=== PATIENT | male | born 1965 | race Caucasian/White ===

== ENCOUNTER 2020-04-16 10:10 | Day surgery (SDC) | payer OTHER, SELFPAY ==
[2020-04-12 12:24] VITALS: BMI 31.1
--- NOTE | 2020-04-14 15:10 | HO.ANESPROP2 ---
Documented by User: Bettye Andrea 04/15/20 13:03 HPI - Anesthesia Eval Consult details Narrative: 55yo M for Upper Endoscopy [facility] Past Medical History Medical History GERD (gastroesophageal reflux disease) Surgical History Surgical History History of shoulder surgery Social History Social History Are you a primary childcare worker to a significant other at home: No Do you presently have visiting nurse or other home services: No Smoking Status: Unknown if ever smoked Use of substances other than those prescribed or required for medical reasons: No Have you been hit, kicked, punched, or otherwise hurt by someone within the past year? If so, by whom?: No Advance Directives: No Advance Directives on File: No Recently lost weight without trying: No Meds Allergies Allergy/AdvReac Type Severity Reaction Status Date / Time No Known Allergies Allergy Verified 04/15/20 13:03 Home Medications Medication Instructions Recorded Confirmed Type albuterol sulfate 1 puff PO Q4H PRN 04/12/20 04/12/20 History ibuprofen 800 mg PO Q8H PRN 04/12/20 04/12/20 History multivitamin 1 cap PO DAILY 04/12/20 04/12/20 History omeprazole 1 cap PO DAILY 04/12/20 04/12/20 History Exam Exam Date and Time: April 14, 2020 1510 Height,Weight and Vital Signs: Height 5 ft 8 in Weight 92.986 kg Assessment and Plan Assessment Anesthesia Assessment: Chart Reviewed Documented by User: Emilie Narayan 04/16/20 10:22 [facility] Past Medical History Medical History GERD (gastroesophageal reflux disease) Surgical History Surgical History History of shoulder surgery Social History Social History Are you a primary childcare worker to a significant other at home: No Do you presently have visiting nurse or other home services: No Smoking Status: Unknown if ever smoked Use of substances other than those prescribed or required for medical reasons: No Have you been hit, kicked, punched, or otherwise hurt by someone within the past year? If so, by whom?: No Advance Directives: No Advance Directives on File: No Recently lost weight without trying: No Meds Allergies Allergy/AdvReac Type Severity Reaction Status Date / Time No Known Allergies Allergy Verified 04/15/20 13:03 Home Medications Medication Instructions Recorded Confirmed Type albuterol sulfate 1 puff PO Q4H PRN 04/12/20 04/12/20 History ibuprofen 800 mg PO Q8H PRN 04/12/20 04/12/20 History multivitamin 1 cap PO DAILY 04/12/20 04/12/20 History omeprazole 1 cap PO DAILY 04/12/20 04/12/20 History Exam Airway Mallampati Class: I TM Dist: >3cm Neck ROM: Full Loose/Missing/Broken Teeth: No Heart: RRR Lungs: CTA Assessment and Plan Assessment Anesthesia Assessment: Anesthesia Plan Discussed and Chart Reviewed Final Anesthetic Review NPO: Yes ASA Class: I Final Preanesthetic Review: Meds/Allgs Chart Reviewed, Consent Obtained/Reviewed and Anes Risks/Benef Reviewed Patient Risk: Low Procedure Risk: Intermediate Anesthetic Plan Anesthetic Plan: MAC: Disposition: Standard PACU
[2020-04-16 10:16] VITALS: BP 127/91; PULSE 61; RESP 18; TEMP 36.3; O2SAT 98
--- NOTE | 2020-04-16 10:24 | MHC.SHP ---
Pre-Procedural Eval Section A The patient is an INPATIENT: No Changes since office visit: No Cold of Flu in the past 2 weeks, No New Medical Problems, No Changes in Medication and No Patient answered all questions The History & Physical has been completed within 30 days and I have reviewed it.: Yes Section B Chief Complaint: Gerd Allergies: Allergies Allergy/AdvReac Type Severity Reaction Status Date / Time No Known Allergies Allergy Verified 04/15/20 13:03 Plan Patient has been examined and remains a candidate for the planned procedure
[2020-04-16] MEDS: Lactated Ringers 1,000 ML 100 ML IVCONT (10:30)
--- NOTE | 2020-04-16 10:47 | PM.OP ---
Brief Operative Note Date of Service: 04/16/20 Pre-op diagnosis: gerd Post-op diagnosis: same (gastric polyps) Procedure: egd Surgeon: Eliseo Vieira Anesthesia: MAC Estimated blood loss (mL): 5 Pathology: other (bxs antrum egj gastric polyps) Condition: stable Disposition: PACU
[2020-04-16 10:55] VITALS: BP 127/86; PULSE 73; RESP 16; TEMP 36.3; O2SAT 96
[2020-04-16 11:10] VITALS: BP 136/86; PULSE 74; RESP 16; TEMP 36.3; O2SAT 96
--- NOTE | 2020-04-16 11:25 | OP_ITS ---
SURGEON: Eliseo Vieira MD INDICATIONS: Gastroesophageal reflux disease. PREOPERATIVE DIAGNOSIS: POSTOPERATIVE DIAGNOSIS: PROCEDURE PERFORMED: Upper endoscopy with biopsy. ESTIMATED BLOOD LOSS: COMPLICATIONS: ANESTHESIA: ASSISTANTS: SPECIMENS: MEDICATIONS: Monitored anesthesia care. DESCRIPTION OF PROCEDURE: History and physical performed. The risks and benefits of the procedure were explained to the patient. Informed consent was obtained. The patient was placed in the left lateral decubitus position. The Olympus video gastroscope was introduced into the esophagus, stomach, and duodenum. Examination was performed and the scope was removed. He tolerated the procedure well and was taken to recovery area in stable condition. FINDINGS: Esophagus: The esophagus was remarkable for a small area of less than 2 cm of possible Lennon's esophagus. There was a small hiatal hernia. Biopsies were obtained from the EG junction. Stomach: The stomach showed no evidence of masses or ulcers. There were multiple benign-appearing gastric polyps in the body and fundus. Two of these were biopsied, all were less than 10 mm. Antral biopsies were obtained to rule out H pylori. Duodenum: The bulb and second portion were normal. IMPRESSION: 1. Gastroesophageal reflux disease. 2. Gastric polyps. RECOMMENDATION: Follow up the biopsy results. MD MARIO Swenson/KYLAH / [id number]
--- NOTE | 2020-04-16 13:07 | HO.POSTANES ---
Post Anesthesia Evaluation Post Anesthesia Evaluation Vital Signs: Vital Signs Temp Pulse Resp BP Pulse Ox 04/16/20 11:10 97.3 F 74 16 136/86 96 04/16/20 10:55 97.3 F 73 16 127/86 96 04/16/20 10:16 97.4 F 61 18 127/91 H 98 Anesthesia: Monitored Mental Status: Awake Pain Control: Satisfactory Nausea/Vomiting: None Hydration: Adequate Anesthesia-Related Issues: No Anes. Related Issues
== END 2020-04-16 12:47 | disposition home or self-care (01) ==
PROVIDERS: PCP Internal Medicine; Visit Provider Internal Medicine Gastroenterology
PROC: 0DJ08ZZ Inspection of Upper Intestinal Tract, Via Natural or Artificial Opening Endoscopic (ICD-10-PCS; CPT 43235; principal; 2020-04-16 11:10)
DX: K21.00 Gastro-esophageal reflux disease with esophagitis, without bleeding (principal); K31.7 Polyp of stomach and duodenum; K22.70 Barrett's esophagus without dysplasia
CPT/HCPCS: 43239; 88305; 88342

== ENCOUNTER 2020-07-06 08:42 | Outpatient (REF) | payer OTHER, SELFPAY ==
[2020-07-06 09:35] LABS: MANUAL DIFF FLAG NO
[2020-07-06 09:37] LABS: Basophils Absolute Auto 0.1 X10*3/uL (0.0-0.2); Basophils Percent Auto 0.7 % (0-2); Eosinophils Absolute Auto 0.3 X10*3/uL (0.0-0.4); Eosinophils Percent Auto 3.7 % (0-4); Hematocrit 41.6 % (42-52); Hemoglobin 14.2 g/dl (14.0-18.0); Imm Gran Abs Auto 0.08 X10*3/uL (0.00-0.03); Imm Gran Pct Auto 1.2 % (0.0-0.4); Lymphocytes Absolute Auto 1.7 X10*3/uL (1.2-4.9); Lymphocytes Percent Auto 25.5 % (20-40); Mean Corpuscular HGB Conc 34.1 g/dl (31.0-36.0); Mean Corpuscular Hemoglobin 30.4 pg (27.0-33.0); Mean Corpuscular Volume 89.1 fL (80-98); Mean Platelet Volume 10.4 fL (9.4-12.4); Monocytes Absolute Auto 0.7 X10*3/uL (0.1-1.2); Neutrophils Absolute Auto 3.9 X10*3/uL (2.0-8.3); Neutrophils Percent Auto 57.9 % (45-73); Platelet Count 276 X10*3/uL (160-400); Red Blood Count 4.67 X10*6/uL (4.60-5.80); Red Cell Distribution Width 12.7 % (11.0-16.0); White Blood Count 6.8 X10*3/uL (4.8-10.8)
[2020-07-06 09:57] LABS: Glucose Urine UA NEG (NEG); Leukocyte Esterase Urine NEG (NEG); Nitrite Urine NEG (NEG); Specific Gravity - Urine 1.025 (1.005-1.025); Urine Blood TRACE (NEG); Urine Ketones NEG (NEG); Urine Protein NEG (NEG-TRACE)
[2020-07-06 09:58] LABS: Alanine Aminotransferase 50 U/L (0-40); Albumin Level 3.9 g/dL (3.5-5.0); Alkaline Phosphatase 79 U/L (39-117); Anion Gap 14 (12-20); Aspartate Amino Transferase 26 U/L (5-37); Bilirubin Total 0.5 mg/dL (0.0-1.0); Blood Urea Nitrogen 15 mg/dL (9-16); Calcium 8.7 mg/dL (8.4-10.2); Carbon Dioxide 24 mmol/L (22-29); Chloride 106 mmol/L (96-108); Cholesterol 221 mg/dL; Estimated Glomerular Filt Rate > 60; Glucose Random 102 mg/dL (60-115); HDL Cholesterol 44 mg/dL; LDL Cholesterol Calculated 150 mg/dl; Potassium 4.2 mmol/L (3.3-5.1); Sodium 140 mmol/L (135-145); Total Protein 6.8 g/dL (6.5-8.0); Triglycerides 136 mg/dL
[2020-07-06 10:03] LABS: Appearance Urine CLEAR; Color Urine YELLOW
[2020-07-06 10:17] LABS: WBC Urine 0-2 /HPF (0-4)
[2020-07-06 10:18] LABS: Prostate Specific Antigen 0.86 ng/mL (<0.05-4.0)
[2020-07-06 10:19] LABS: Mucus Urine 1+ /LPF
== END 2020-07-06 08:43 | disposition home or self-care (01) ==
LOC: HO.LAB 08:42
PROVIDERS: PCP Internal Medicine; Visit Provider Internal Medicine
DX: Z00.00 Encounter for general adult medical examination without abnormal findings (principal); E78.00 Pure hypercholesterolemia, unspecified; Z12.5 Encounter for screening for malignant neoplasm of prostate
CPT/HCPCS: 36415; 80053; 80061; 81001; 81003; 84153; 85025

== ENCOUNTER 2021-07-19 10:37 | Outpatient (REF) | payer OTHER, SELFPAY ==
[2021-07-19 10:39] LABS: MANUAL DIFF FLAG NO
[2021-07-19 11:28] LABS: Appearance Urine CLEAR; Color Urine YELLOW; Glucose Urine UA NEG (NEG); Leukocyte Esterase Urine NEG (NEG); Nitrite Urine NEG (NEG); Urine Blood 1+ (NEG); Urine Ketones NEG (NEG); Urine Protein NEG (NEG-TRACE)
[2021-07-19 11:29] LABS: Basophils Absolute Auto 0.1 X10*3/uL (0.0-0.2); Eosinophils Absolute Auto 0.4 X10*3/uL (0.0-0.4); Eosinophils Percent Auto 5.6 % (0-4); Hematocrit 43.3 % (42.0-52.0); Hemoglobin 14.4 g/dl (14.0-18.0); Imm Gran Abs Auto 0.09 X10*3/uL (0.00-0.03); Imm Gran Pct Auto 1.3 % (0.0-0.4); Lymphocytes Percent Auto 27.7 % (20-40); Mean Corpuscular HGB Conc 33.3 g/dl (31.0-36.0); Mean Corpuscular Hemoglobin 30.1 pg (27.0-33.0); Mean Corpuscular Volume 90.4 fL (80.0-98.0); Mean Platelet Volume 10.5 fL (9.4-12.4); Monocytes Absolute Auto 0.8 X10*3/uL (0.1-1.2); Neutrophils Absolute Auto 3.8 x10*3/uL (2.0-8.3); Neutrophils Percent Auto 53.4 % (45-73); Platelet Count 260 X10*3/uL (160-400); Red Blood Count 4.79 X10*6/uL (4.60-5.80); Red Cell Distribution Width 12.6 % (11.0-16.0); White Blood Count 7.2 X10*3/uL (4.8-10.8)
[2021-07-19 11:51] LABS: Alanine Aminotransferase 40 U/L (0-40); Albumin Level 3.8 g/dL (3.5-5.0); Alkaline Phosphatase 75 U/L (39-117); Anion Gap 10 (12-20); Aspartate Amino Transferase 22 U/L (5-37); Bilirubin Total 0.4 mg/dL (0.0-1.0); Blood Urea Nitrogen 14 mg/dL (9-16); Carbon Dioxide 28 mmol/L (22-29); Chloride 106 mmol/L (96-108); Cholesterol 214 mg/dL; Estimated Glomerular Filt Rate > 60; Glucose Fasting 107 mg/dL (60-99); HDL Cholesterol 42 mg/dL; LDL Cholesterol Calculated 144 mg/dl; Sodium 140 mmol/L (135-145); Total Protein 6.7 g/dL (6.5-8.0); Triglycerides 144 mg/dL
[2021-07-19 12:12] LABS: PSA,Total (Free>4and<10) 0.94 ng/mL (0.00-4.00)
== END 2021-07-19 10:38 | disposition home or self-care (01) ==
LOC: HO.LNP 10:37
PROVIDERS: PCP Internal Medicine; Visit Provider Internal Medicine
DX: Z00.00 Encounter for general adult medical examination without abnormal findings (principal); Z12.5 Encounter for screening for malignant neoplasm of prostate; E78.00 Pure hypercholesterolemia, unspecified
CPT/HCPCS: 80053; 80061; 81001; 81003; 84153; 85025

== ENCOUNTER 2022-07-25 11:44 | Outpatient (REF) | payer OTHER, SELFPAY ==
[2022-07-25 11:47] LABS: MANUAL DIFF FLAG NO
[2022-07-25 12:10] LABS: Basophils Absolute Auto 0.1 X10*3/uL (0.0-0.2); Eosinophils Absolute Auto 0.3 X10*3/uL (0.0-0.4); Eosinophils Percent Auto 3.3 % (0-4); Hematocrit 44.1 % (42.0-52.0); Hemoglobin 14.5 g/dl (14.0-18.0); Imm Gran Abs Auto 0.08 X10*3/uL (0.00-0.03); Lymphocytes Absolute Auto 2.4 X10*3/uL (1.2-4.9); Lymphocytes Percent Auto 29.1 % (20-40); Mean Corpuscular HGB Conc 32.9 g/dl (31.0-36.0); Mean Corpuscular Hemoglobin 29.8 pg (27.0-33.0); Mean Corpuscular Volume 90.7 fL (80.0-98.0); Monocytes Absolute Auto 0.9 X10*3/uL (0.1-1.2); Monocytes Percent Auto 11.2 % (2-11); Neutrophils Absolute Auto 4.4 x10*3/uL (2.0-8.3); Neutrophils Percent Auto 54.4 % (45-73); Platelet Count 283 X10*3/uL (160-400); Red Blood Count 4.86 X10*6/uL (4.60-5.80); White Blood Count 8.1 X10*3/uL (4.8-10.8)
[2022-07-25 12:13] LABS: Appearance Urine Clear; Color Urine Yellow; Glucose Urine UA Negative (Negative); Leukocyte Esterase Urine Negative (Negative); Nitrite Urine Negative (Negative); PH 5.5 (5.0-9.0); Urine Blood Negative (Negative); Urine Ketones Negative (Negative); Urine Protein Negative (Neg-Trace)
[2022-07-25 12:17] LABS: Bacteria Urine None Seen (None Seen); Hyaline Casts Urine 0-2 /LPF (0-2); Squamous Epithelial Cell Urine 0-2 /HPF (0-2); WBC Urine 0-5 /HPF (0-5)
[2022-07-25 12:29] LABS: Alanine Aminotransferase 54 U/L (0-40); Alkaline Phosphatase 75 U/L (39-117); Anion Gap 11 (12-20); Aspartate Amino Transferase 26 U/L (5-37); Bilirubin Total 0.6 mg/dL (0.0-1.0); Blood Urea Nitrogen 18 mg/dL (9-16); Calcium 9.1 mg/dL (8.4-10.2); Carbon Dioxide 26 mmol/L (22-29); Chloride 105 mmol/L (96-108); Cholesterol 216 mg/dL; Estimated Glomerular Filt Rate > 60; Glucose Fasting 104 mg/dL (60-99); HDL Cholesterol 40 mg/dL; LDL Cholesterol Calculated 150 mg/dl; Sodium 138 mmol/L (135-145); Total Protein 6.9 g/dL (6.5-8.0); Triglycerides 134 mg/dL
[2022-07-25 12:50] LABS: PSA,Total (Free>4and<10) 0.98 ng/mL (0.00-4.00)
== END 2022-07-25 11:45 | disposition home or self-care (01) ==
LOC: HO.LNP 11:44
PROVIDERS: Visit Provider Internal Medicine
DX: Z00.00 Encounter for general adult medical examination without abnormal findings (principal); E78.00 Pure hypercholesterolemia, unspecified; Z12.5 Encounter for screening for malignant neoplasm of prostate
CPT/HCPCS: 80053; 80061; 81001; 84153; 85025

== ENCOUNTER 2023-07-26 07:43 | Outpatient (REF) | payer OTHER, SELFPAY ==
[2023-07-26 10:30] LABS: MANUAL DIFF FLAG NO
[2023-07-26 10:33] LABS: Appearance Urine Clear; Color Urine Yellow; Glucose Urine UA Negative (Negative); Leukocyte Esterase Urine Negative (Negative); Nitrite Urine Negative (Negative); PH 5.5 (5.0-9.0); Specific Gravity - Urine 1.025 (1.005-1.025); UMIC TRIGGER UACC YES; Urine Blood Small (1+) (Negative); Urine Ketones Negative (Negative); Urine Protein Negative (Neg-Trace)
[2023-07-26 10:35] LABS: Basophils Absolute Auto 0.1 X10*3/uL (0.0-0.2); Basophils Percent Auto 0.7 % (0-2); Eosinophils Absolute Auto 0.2 X10*3/uL (0.0-0.4); Eosinophils Percent Auto 3.1 % (0-4); Hematocrit 43.4 % (42.0-52.0); Hemoglobin 14.7 g/dl (14.0-18.0); Imm Gran Abs Auto 0.07 X10*3/uL (0.00-0.03); Imm Gran Pct Auto 0.9 % (0.0-0.4); Lymphocytes Absolute Auto 2.1 X10*3/uL (1.2-4.9); Lymphocytes Percent Auto 28.5 % (20-40); Mean Corpuscular HGB Conc 33.9 g/dl (31.0-36.0); Mean Corpuscular Hemoglobin 30.4 pg (27.0-33.0); Mean Corpuscular Volume 89.9 fL (80.0-98.0); Monocytes Absolute Auto 0.8 X10*3/uL (0.1-1.2); Monocytes Percent Auto 11.1 % (2-11); Neutrophils Absolute Auto 4.1 x10*3/uL (2.0-8.3); Neutrophils Percent Auto 55.7 % (45-73); Platelet Count 270 X10*3/uL (160-400); Red Blood Count 4.83 X10*6/uL (4.60-5.80); Red Cell Distribution Width 12.8 % (11.0-16.0); White Blood Count 7.4 X10*3/uL (4.8-10.8)
[2023-07-26 10:49] LABS: Bacteria Urine None Seen (None Seen); Hyaline Casts Urine 0-2 /LPF (0-2); Squamous Epithelial Cell Urine 0-2 /HPF (0-2); WBC Urine 0-5 /HPF (0-5)
[2023-07-26 11:22] LABS: Alanine Aminotransferase 63 U/L (0-40); Alkaline Phosphatase 84 U/L (39-117); Anion Gap 11 (12-20); Aspartate Amino Transferase 31 U/L (5-37); Bilirubin Total 0.3 mg/dL (0.0-1.0); Blood Urea Nitrogen 17 mg/dL (9-16); Calcium 9.4 mg/dL (8.4-10.2); Carbon Dioxide 29 mmol/L (22-29); Chloride 105 mmol/L (96-108); Cholesterol 176 mg/dL (<200); Estimated Glomerular Filt Rate > 60; Glucose Fasting 101 mg/dL (60-99); HDL Cholesterol 36 mg/dL (>40); LDL Cholesterol Calculated 120 mg/dL (<100); Potassium 4.4 mmol/L (3.3-5.1); Prostate Specific Antigen Scr 1.05 ng/mL (<0.05-4.0); Sodium 141 mmol/L (135-145); Total Protein 7.5 g/dL (6.5-8.0); Triglycerides 100 mg/dL (<150)
== END 2023-07-26 07:44 | disposition home or self-care (01) ==
LOC: HO.10HDL 07:43
PROVIDERS: Visit Provider Internal Medicine
DX: Z00.00 Encounter for general adult medical examination without abnormal findings (principal); E78.00 Pure hypercholesterolemia, unspecified; Z12.5 Encounter for screening for malignant neoplasm of prostate
CPT/HCPCS: 36415; 80053; 80061; 81001; 84153; 85025

== ENCOUNTER 2024-01-04 11:16 | Outpatient (REF) | payer OTHER, SELFPAY ==
[2024-01-04 12:07] LABS: Alanine Aminotransferase 39 U/L (0-40); Alkaline Phosphatase 88 U/L (39-117); Aspartate Amino Transferase 24 U/L (5-37); Bilirubin Direct 0.2 mg/dL (0.0-0.5); Bilirubin Total 0.5 mg/dL (0.0-1.0); Cholesterol 133 mg/dL (<200); HDL Cholesterol 45 mg/dL (>40); LDL Cholesterol Calculated 72 mg/dL (<100); Total Protein 7.4 g/dL (6.5-8.0); Triglycerides 84 mg/dL (<150)
== END 2024-01-04 11:17 | disposition home or self-care (01) ==
LOC: HO.LNP 11:16
PROVIDERS: Visit Provider Internal Medicine
DX: I70.0 Atherosclerosis of aorta (principal)
CPT/HCPCS: 80061; 80076

== ENCOUNTER 2024-07-28 10:57 | Outpatient (REF) | payer OTHER, SELFPAY ==
[2024-07-28 11:02] LABS: MANUAL DIFF FLAG NO
[2024-07-28 11:07] LABS: Appearance Urine Clear; Basophils Percent Auto 0.5 % (0-2); Color Urine Yellow; Eosinophils Absolute Auto 0.2 X10*3/uL (0.0-0.4); Eosinophils Percent Auto 2.9 % (0-4); Glucose Urine UA Negative (Negative); Hemoglobin 14.1 g/dl (14.0-18.0); Imm Gran Abs Auto 0.09 X10*3/uL (0.00-0.03); Imm Gran Pct Auto 1.1 % (0.0-0.4); Leukocyte Esterase Urine Negative (Negative); Lymphocytes Absolute Auto 1.9 X10*3/uL (1.2-4.9); Lymphocytes Percent Auto 22.2 % (20-40); Mean Corpuscular HGB Conc 32.8 g/dl (31.0-36.0); Mean Corpuscular Hemoglobin 29.9 pg (27.0-33.0); Mean Corpuscular Volume 91.1 fL (80.0-98.0); Mean Platelet Volume 10.1 fL (9.4-12.4); Monocytes Absolute Auto 1.1 X10*3/uL (0.1-1.2); Monocytes Percent Auto 12.6 % (2-11); Neutrophils Absolute Auto 5.1 x10*3/uL (2.0-8.3); Neutrophils Percent Auto 60.7 % (45-73); Nitrite Urine Negative (Negative); Platelet Count 252 X10*3/uL (160-400); Red Blood Count 4.72 X10*6/uL (4.60-5.80); Red Cell Distribution Width 13.4 % (11.0-16.0); Specific Gravity - Urine 1.025 (1.005-1.025); UMIC TRIGGER UACC YES; Urine Blood Trace (Negative); Urine Ketones Negative (Negative); Urine Protein 30 (1+) mg/dL (Neg-Trace); White Blood Count 8.4 X10*3/uL (4.8-10.8)
[2024-07-28 11:09] LABS: Bacteria Urine None Seen (None Seen); Hyaline Casts Urine 0-2 /LPF (0-2); Squamous Epithelial Cell Urine 0-2 /HPF (0-2); WBC Urine 0-5 /HPF (0-5)
[2024-07-28 12:03] LABS: Alanine Aminotransferase 43 U/L (0-40); Albumin Level 3.9 g/dL (3.5-5.0); Alkaline Phosphatase 85 U/L (39-117); Anion Gap 11 (12-20); Aspartate Amino Transferase 30 U/L (5-37); Bilirubin Total 0.6 mg/dL (0.0-1.0); Blood Urea Nitrogen 16 mg/dL (9-16); Calcium 9.4 mg/dL (8.4-10.2); Carbon Dioxide 28 mmol/L (22-29); Chloride 107 mmol/L (96-108); Cholesterol 134 mg/dL (<200); Estimated Glomerular Filt Rate > 60; Glucose Fasting 104 mg/dL (60-99); HDL Cholesterol 42 mg/dL (>40); LDL Cholesterol Calculated 76 mg/dL (<100); Potassium 4.1 mmol/L (3.3-5.1); Sodium 142 mmol/L (135-145); Total Protein 7.3 g/dL (6.5-8.0); Triglycerides 81 mg/dL (<150)
--- OUTSIDE RECORDS SUMMARY | 2024-07-28 12:35 | XMS_ITS ---
Author Organization Jared English MD Address [address] [place], [place] [id number] Care Team Providers Care Insole Coverer Name Role Phone Tameka Jared Primary Care Provider [phone] Results Component Value Reference Range Notes Liver Panel Reviewed date:01/04/2024 12:30:49 PM Interpretation: Performing Lab:[facility], [address] [place] [id number] Notes/Report: Bilirubin Total 0.5 0.0-1.0 mg/dL Bilirubin Direct 0.2 0.0-0.5 mg/dL Aspartate Amino Transferase 24 5-37 U/L Alanine Aminotransferase 39 0-40 U/L Total Protein 7.4 6.5-8.0 g/dL Albumin Level 4.0 3.5-5.0 g/dL Alkaline Phosphatase 88 39-117 U/L Lipid Panel Reviewed date:01/04/2024 12:30:42 PM Interpretation: Performing Lab:[facility], [address] [place] [phone] Notes/Report: Triglycerides 84 <150 mg/dL Desirable Triglyceride: less than 150 mg/dL Borderline High Triglyceride 150-199 mg/dL High Triglyceride: 200-499 mg/dL Very High Triglyceride: greater than or equal to 5OO mg/dL Cholesterol 133 <200 mg/dL Desirable Cholesterol: less than 200 mg/dL Borderline High Cholesterol: 200-239 mg/dL High Cholesterol: greater than 239 mg/dL LDL Cholesterol Calculated 72 <100 mg/dL Desirable LDL: less than 100 mg/dL Near Optimal/Above Optimal LDL: 110-129 mg/dL Borderline High LDL: 130-159 mg/dL High LDL: 160-189 mg/dL Very High LDL: greater than or equal to 190 mg/dL HDL Cholesterol 45 >40 mg/dL Desirable HDL: greater than 40 mg/dL Note: This HDL assay may give artificially low results in patients with liver disease. REASON FOR VISIT fasting liver/ lipid panel Encounters Encounter Location Date Provider Diagnosis Jared English MD [address] [place] [address] [address] [place], [place] [id number] 01/04/2024 Jared English Hypercholesterolemia E78.00 and Atherosclerosis of abdominal aorta I70.0 Assessments Encounter Date Diagnosis (ICD Code) Assessment Notes Treatment Notes Treatment Clinical Notes Section Notes 01/04/2024 Hypercholesterolemia (ICD-10 - E78.00) 01/04/2024 Atherosclerosis of abdominal aorta (ICD-10 - I70.0) Plan Of Treatment Next Appt Details Provider Name:Jared Mckeon ier, 08/04/2024 09:30:00 AM, [address] [place] [address], Suite [facility], [place], [place], [id number], Progress Notes * Giovanni MANUEL SDOB:1965 (59 yo M)Acc No.[id number]:01/04/2024 Progress Note Patient:?Giovanni MANUEL S Provider:?Jared English MD :1965???Age:58 Y???Sex:Male Henrry e:01/04/2024 Address:[address] [place], [place] [id number] Subjective: * Chief Complaints: * ???1. Fasting liver/ lipid p [place]. * Medical History:? Objective: * Vitals:? Assessment: * Assessment: 1.?Hypercholesterolemia - E7 8.00 (Primary)???2.?Atherosclerosis of abdominal aorta - I70.0??? Plan: * Treatment: * Procedure Codes:?87079 VENIP UNCT, ROUTINE* * * The named appointment provid er may or may not be the originator of this progress note, and it is not deemed complete until electronically signed by the appointment provider. Sign off status: Pending * Provider:?Jared English MD Date:?0 01/04/2024 Generated for Julissa crenshaw/Geovanny/Kirtitting on:?07/28/2024 12:35 PM EST
--- OUTSIDE RECORDS SUMMARY | 2024-07-28 12:35 | XMS_ITS | Clinical Summary ---
Author Organization [facility] Address [address] [place] [address] Care Team Providers Care Key Carrier Name Role Phone Jared English MD Primary Care Provider [phone] Allergies No known active allergies Medications Medication Sig Dispensed Refills Start Date End Date Status omeprazole (PriLOSEC) 40 MG capsule Take 40 mg by mouth daily. 0 10/11/2021 Active Active Problems Problem Noted Date Diagnosed Date Trochanteric bursitis, right hip 11/15/2021 Social History Tobacco Use Types Packs/Day Years Used Date Smoking Tobacco: Never Assessed Sex and Gender Information Value Date Recorded Sex Assigned at Not on file Gender Identity Not on file Sexual Orientation Not on file Job Start Date Occupation Industry Not on file Not on file Not on file Last Filed Vital Signs Vital Sign Reading Time Taken Comments Blood Pressure - - Pulse - - Temperature - - Respiratory Rate - - Oxygen Saturation - - Inhaled Oxygen Concentration - - Weight 88.5 kg (195 lb) 11/15/2021 8:52 AM EDT Height 172.7 cm (5' 8 ) 11/15/2021 8:52 AM EDT Body Mass Index 29.65 11/15/2021 8:52 AM EDT Plan of Treatment Health Maintenance Due Date Last Done Comments Hepatitis C Screening 1965 COVID-19 Vaccine (#1) 1965 Depression Screening 1975 BMI Counseling 1981 Preventative Health Evaluation 1981 Colon Cancer Screening (Colonoscopy) 2008 Shingrix-Zoster Vaccine (1 of 2) 2013 DTap / Tdap / Td (2 - Td or Tdap) 07/25/2016 007 Influenza Vaccine (#1) 2024 RSV Adult > 60+ Yrs or Pregn ant (1 - 1-dose 75+ series) 2038 Hepatitis B Vaccines Aged Out No long er eligible based on patient's age to complete this topic Pneumococcal Vaccine Aged Out No long er eligible based on patient's age to complete this topic RSV Ped < 20 months Aged Out No longe r eligible based on patient's age to complete this topic Care Teams Key Carrier Relationship Specialty Start Date End Date Jared English MD [address] [place] [address] [address] [place] [phone] PCP - General Internal Medicine 11/14/21
--- OUTSIDE RECORDS SUMMARY | 2024-07-28 12:35 | XMS_ITS | Data Portability ---
Author Organization [place] - [facility], 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 Plan of Treatment Reminders Order Date Submit Date Provider Last Modified By Organization Details Last Modified Time Details Appointments None recorded. Lab None recorded. Referral None recorded. Procedures None recorded. Surgeries None recorded. Imaging XR, hand, 3 or more view 2023 024 [email or web address] [facility], [address], [address], [place], [address], 4 12:29:34 XR, ankle, 3 or more view - new pt 3 views left ankle wb rm 109 2023 024 [email or web address] [facility], [address], [address], [place], [address], 4 13:11:52 MRI, ankle, w/o contrast - left ankle pain eval stress fracture distal tibia STAT 2023 024 [email or web address] [facility] [place], [address], [address], [place], [address], 4 13:11:52 Medication Orders meloxicam 15 mg tablet 2023 024 [email or web address] [id number], [address] , [place], [address], 4 12:29:34 meloxicam 15 mg tablet 2023 024 [email or web address] [id number], [address], [place], [address], 12:17:45 Patient TargetsNo targets recorded. Patient InstructionsNo instructions recorded. Reason for Referral None Reported. Results Created Date Observation Date Name Description Value Unit Range Abnormal Flag Note LastModifiedBy Organization Detail LastModifiedTime 01/24/20 24 01/24/2024 XR, ankle , 3 or more view [email or web address] ?Encry pted=s hAaTro YD8dLq bEUv6g %2BXZw aYqtaq 0bqfl% 2Fg9IQ a4ajBk vP9nXo QUaueC m3YtLR FvZlgJ JJ8mAn HZtai3 0q9855 AC0Kra HmFWKT eUC8mr 84%3D INTERFACE [facility] [address], [place], [address], 01/24/2024 10:18:47 01/24/20 24 01/24/2024 XR, ankle , 3 or more view [email or web address] ?Encry pted=s hAaTro YD8dLq bEUv6g %2BXZw aYqtaq 0bqfl% 2Fg9IQ a4ajBk vP9nXo QUaueC m3YtLR FvZl JJ8mAn HZtai3 2b7090 AC0Kra HmFWKT eUC8mr 84%3D INTERFACE [facility] [address], [place], [address], 01/24/2024 10:18:49 02/02/20 24 01/13/2020 imagi ng/di agnos tic resul t No observ ation record ed. [email or web address] Not Available 01/04 06:35:35 02/14/20 24 02/13/2024 MRI, ankle , w/o contr ast No observ ation record ed. [email or web address] [facility] [place] [address], [place], [address], 02/28/2024 15:03:50 02/14/20 24 02/13/2024 XR, ankle , 3 or more view No observ ation record ed. ENRRIQUE [facility] [place] [address], [place], [address], 02/28/2024 15:03:51 04/11/20 24 04/11/2024 XR, hand, 3 or more view [email or web address] ?Encry pted=s hAaTro YD8dLq bEUv6g %2BXZw aYqtaq 0bqfl% 2Fg9IQ a4ajBk vP9nXo QUaueC m3YtLR FvZlgJ JJ8mAn HZtai3 1v5832 AC0Kqa HqAUaG hKiQtr MwF INTERFACE [facility] [address], [place], [address], 04/11/2024 10:19:26 04/11/20 24 04/11/2024 XR, hand, 3 or more view [email or web address] ?Encry pted=s hAaTro YD8dLq bEUv6g %2BXZw aYqtaq 0bqfl% 2Fg9IQ a4ajBk vP9nXo QUaueC m3YtLR FvZl J8Inkom HZtai3 8z2193 AC0Kqa HqAUaG hKiQtr MwF INTERFACE [facility] [address], [place], [address], 04/11/2024 10:19:28 Result Notes None recorded. Problems Name Problem SNOMED Code Status Onset Date Resolution Date Notes Provider Name and Address Organization Details Recorded Time Trochante jyoti bursitis of left hip 288849281739 103 Active 2017 Problem Code: M70.62; Problem Code Type: ICD-10; Status: 'A'; Not Available [facility] 11:27:35 Problem Notes None recorded. Procedures Surgical History Date Name Laterality Status Provider Name and Address Organization Details Recorded Time 5 Small Joint Kenalog Injection, L/R completed Tierney Worrell PA-C [address], [place], [address], [facility] 07/02/2024 11:45:49 5 Small Joint Kenalog Injection, Bilateral completed Tierney Worrell PA-C [address], [place], [address], [facility] 07/02/2024 11:45:44 Imaging Results Imaging Date Name Status LastModified by [facility] Details LastModified Time 01/24/2024 XR, ankle, 3 or more view completed INTERFACE [facility] [address], [place], [address], 01/24/2024 10:18:47 01/24/2024 XR, ankle, 3 or more view completed INTERFACE [facility] [address], [place], [address], 01/24/2024 10:18:49 01/13/2020 imaging/diagn ostic result completed [email or web address] Information not available 02/02/2024 06:35:35 02/13/2024 MRI, ankle, w/o contrast completed [email or web address] [facility] [place] [address] [facility], [place], [address], 02/28/2024 15:03:50 02/13/2024 XR, ankle, 3 or more view completed ENRRIQUE [facility] [place] [address], [place], [address], 02/28/2024 15:03:51 04/11/2024 XR, hand, 3 or more view completed INTERFACE [facility] [address], [place], [address], 04/11/2024 10:19:26 04/11/2024 XR, hand, 3 or more view completed [facility] [address], [place], [address], 04/11/2024 10:19:28 Procedure Notes None recorded. Medical Equipment None Reported. Allergies No known drug allergies Medications Name Sig Start Date Stop Date Status Note LastModified by Organization Details LastModified Time atorvastati n 40 mg tablet TAKE 1 TABLET BY MOUTH EVERY DAY FOR 90 DAYS active Not Available Not Available No t Available meloxicam 15 mg tablet TAKE 1 TABLET BY MOUTH EVERY DAY WITH A MEAL active Not Available Not Available No t Available omeprazole 40 mg capsule,del ayed release TAKE 1 CAPSULE BY MOUTH EVERY DAY active Not Available Not Available No t Available benzonatate 100 mg capsule TAKE 1 CAPSULE BY MOUTH 3 TIMES A DAY NEEDED FOR COUGH 03/25 completed Not Available Not Available Not Available pseudoephed rine-guaife nesin ER 80-700 mg tablet,exte nded release DO NOT DRIVE WHILE ON THIS MEDICATIO N 03/25 completed Statu s: 'Curr ent'; Not Available Not Available Not Available oxycodone HCl-oxycodo ne-ASA 1 Q 4-6HRS PRN PAINDO NOT DRIVE WHILE ON THIS MEDICATIO N 04/17 completed Statu s: 'Disc ontin ued'; Not Available Not Available Not Available Tremfya 100 mg/mL subcutaneou s auto-inject or 03/25 completed Not Available Not Available Not Available Vitals Date Recorded Body height Body mass index (BMI) Body weight Provider Name and Address Organization Details Last Updated DateTime 01/24/2024 172.72 cm 30.4 kg/m2 51210.47 g Danna Suresh [facility] 01/24/2024 10:11:54 Date Recorded Body height Body mass index (BMI) Body weight Provider Name and Address Organization Details Last Updated DateTime 02/28/2024 172.72 cm 30.4 kg/m2 10028.47 g Danna Suresh [facility] 02/28/2024 09:22:58 Date Recorded Body height Body mass index (BMI) Body weight Provider Name and Address Organization Details Last Updated DateTime 03/25/2024 172.72 cm 30.4 kg/m2 29957.47 g GABBI HERNANDEZ [facility] 03/25/2024 09:28:55 Date Recorded Body height Body mass index (BMI) Body weight Provider Name and Address Organization Details Last Updated DateTime 04/11/2024 172.72 cm 30.4 kg/m2 03556.47 g MIRELLA GARCIAS [facility] 04/11/2024 09:46:22 Date Recorded Body height Body mass index (BMI) Body weight Provider Name and Address Organization Details Last Updated DateTime 07/02/2024 172.72 cm 30.4 kg/m2 09246.47 g Danna Murraygo [facility] 07/02/2024 10:29:21 Social History None recorded. Functional Status None recorded. Mental Status None recorded. Family History Nothing Reported. Medical History No medical history recorded. Past Encounters Encounter ID Performer Location Encounter Start Date Encounter Closed Date Diagnosis/Indication Diagnosis SNOMED-CT Code Diagnosis ICD10 Code Diagnosis Note [id number] Tierney Worrell PA-C [facility] [address] [place] [address] 01/24/2024 10:00:33 02/18/2024 13:11:51 Ankle pain 309668119 M25.579 Stress fra cture of ankle 083047656 M84.372A [id number] Tierney Worrell PA-C [facility] [address] [place] [address] 02/28/2024 09:13:18 03/24/2024 11:53:18 Stress fracture of ankle 734079506 M84.372A [id number] Tierney Worrell PA-C [facility] [address] [place] [address] 03/25/2024 09:06:05 04/17/2024 11:01:23 Ankle pain 742523450 M25.111 [id number] Tierney Worrell PA-C [facility] [address] [place] [address] 04/11/2024 09:12:51 05/05/2024 09:34:52 Pain of bilateral hands 5451416557 6627076 M79.641 M79.727 [id number] [facility] [address] [place] [address] 07/02/2024 10:19:01 07/11/2024 13:16:52 Osteoarthritis of joint of bilateral hands 8608394006 77813 M19.041 M19.042 Health Concerns Section Related Observation LastModified by Organization Detai ls LastModified Time None Recorded Concern Status LastModified by Organization Details LastModified Time None Recorded Advance Directives Directive None Recorded Payers Encounter Date Sequence Insurance Name Policy Number Policy Riggins Covered Member ID Riggins Member ID Guarantor Name 01/24/2024 1 [facility] [id number] Danna Hoyt [id number] Giovanni Hoyt 02/28/2024 1 [facility] [id number] Danna Hoyt [id number] Giovanni [place] 03/25/2024 1 [facility] [id number] Danna Hoyt [id number] Giovanni S [place] 04/11/2024 1 [facility] [id number] Danna Hoyt [id number] Giovanni Hoyt 07/02/2024 1 [facility] Danna Hoyt [id number] Giovanni Hoyt Notes Date Note Type Note Provider Name and Address Organization Details Recorded Time 01/24/2024 text/html I am seeing this patient under the supervision of Dr. Dos Santos who was available but who did not see the patient.HPI: Patient is a 58-year-old male presenting to the office today for evaluation of left ankle pain. Reports the pain has been going on for the past month or so. Reports the pain is worse with weightbearing activity. Denies any particular falls or injuries. As mentioned he does spend a lot of time on his feet. Localizes his pain to the distal tibia region. He is here today for orthopedic consultation.Past family, medical, social history and review of systems has been reviewed, updated and is located in the patient's chart.Examination: The patient is well appearing, alert and oriented x3 and in no acute distress. Gait is a bit antalgic. On inspection of the left foot and ankle, there is edema about the ankle particularly the medial aspect. Otherwise no edema, erythema, ecchymosis or deformity. Skin is intact, no open wounds. Patient is exquisitly tender about the distal tibia. He is mildly tender about the posterior tibial tendon. Otherwise nontender about the foot and ankle. Patient is able to range the ankle in all planes. Neurovascularly intact distally. No gross instability. Calf is supple, nontender. Achilles tendon nontender, no palpable defect noted. Peripheral, vascular, lymphatic examination, skin, neurological, coordination, reflexes, sensation are within normal limits.X-rays ordered, obtained and reviewed independently today at [facility]: 3 x-rays of the left ankle reveal no acute fractures or dislocations. Minimal arthritic changes noted about the tibiotalar joint and hindfoot.Impression: left distal tibia stress reaction vs stress fracture, possible posterior tibial tendonitisPlan: I discussed my findings and the situation with the patient. We discussed potential treatment options at this time. I recommended an MRI to rule out possible stress fracture of the distal tibia given his sudden onset pain without any particular injury. I recommended weightbearing as tolerated in a boot, however patient would like a brace instead. He was given a script for a brace today. He was given a script for meloxicam per his request as well. Patient was advised not to take any other NSAIDs with meloxicam including ibuprofen/Advil/Aleve /Motrin, and was advised to take it with food. Patient will follow-up for MRI review. Patient's hands and agrees with this plan. All questions were answered.Speech recognition electrician control equipment software was used to create portions of this document. An attempt at proofreading has been made to minimize errors. Please call for corrections. Tierney Worrell PA-C [address] [facility] [address], [place], [address], [facility] 01/24/2024 12:08:43 02/28/2024 text/html I am seeing this patient under the supervision of Dr. Dos Santos who was available but who did not see the patient.HPI: Patient is a 58-year-old male presenting to the office today for recheck of left distal tibia stress reaction versus stress fracture and possible posterior tibial tendinitis. During last visit we obtained an MRI and patient was placed in a boot. He has been weightbearing as tolerated in the boot which he states helps his pain significantly. However his pain returns when he removes the boot. Denies interval trauma. Does mention he has been spending a lot of time on his feet walking and standing due to his kids and his job.Past family, medical, social history and review of systems has been reviewed, updated and is located in the patient's chart.Examination: The patient is well appearing, alert and oriented x3 and in no acute distress. Gait is a bit antalgic. On inspection of the left foot and ankle, there is edema about the ankle particularly the medial aspect. Otherwise no edema, erythema, ecchymosis or deformity. Skin is intact, no open wounds. Patient is exquisitly tender about the distal tibia. He is mildly tender about the posterior tibial tendon. Otherwise nontender about the foot and ankle. Patient is able to range the ankle in all planes. Neurovascularly intact distally. No gross instability. Calf is supple, nontender. Achilles tendon nontender, no palpable defect noted. Peripheral, vascular, lymphatic examination, skin, neurological, coordination, reflexes, sensation are within normal limits.X-rays ordered, obtained and reviewed independently today at [facility]: Not indicated or performed today.Previous films: 3 x-rays of the left ankle reveal no acute fractures or dislocations. Minimal arthritic changes noted about the tibiotalar joint and hindfoot.MRI left ankl independently reviewed by myself today with the patient: Posterior tibialis tendinopathy with low grade partial tearing and tenosynovitis. There is adjacent reactive edema at the posterior medial malleolus and there is also reactive edema at the medial navicular at the distal posterior tibial tendon insertion. Ankle soft tissue edema/swelling.Impres valerie: left distal tibia and navicular stress reaction and posterior tibial tendonitisPlan: I discussed my findings and the situation with the patient. We discussed potential treatment options at this time. I recommended he continue weightbearing as tolerated in the boot. Patient was also provided with arch support inserts to help offload the medial aspect of the ankle and posterior tibial tendon. Patient will follow-up in 4-6 weeks for evaluation, no x-rays needed at that time. Once the symptoms subside we can discuss the the need for ankle brace and/or physical therapy at that time. Patient agrees with this plan. All questions were answered.The patient is ambulatory, but has weakness and/or instability of their extremity which requires stabilization from this semi-rigid/rigid orthosis to improve their function. Verbal and written instructions for the use and application of this item were given. Patient was instructed that should the brace result in increased pain, decreased sensation, increased swelling or an overall worsening of their medical condition, to please contact our office immediately.Speech recognition electrician control equipment software was used to create portions of this document. An attempt at proofreading has been made to minimize errors. Please call for corrections. Tierney Worrell PA-C [address] [place] [address] [address], [place], [address], [facility] 02/28/2024 12:23:29 03/25/2024 text/html I am seeing this patient under the supervision of Dr. Dos Santos who was available but who did not see the patient.HPI: Patient is a 58-year-old male presenting to the office today for recheck of left distal tibia and navicular stress reaction and possible posterior tibial tendinitis. Reports his pain has significantly improved. He has weaned from the boot and transitioned to regular shoewear and returned to his regular activities. Reports the mild compression socks helped tremendously with his pain and swelling as well. Denies interval trauma.Past family, medical, social history and review of systems has been reviewed, updated and is located in the patient's chart.Examination: The patient is well appearing, alert and oriented x3 and in no acute distress. Gait is a bit antalgic. On inspection of the left foot and ankle, there is only minimal edema about the ankle particularly the medial aspect, significantly improved compared to last visit. Otherwise no edema, erythema, ecchymosis or deformity. Skin is intact, no open wounds. Patient is minimally tender about the distal tibia and navicular region. He is minimally tender about the posterior tibial tendon. Otherwise nontender about the foot and ankle. Patient is able to range the ankle in all planes. Neurovascularly intact distally. No gross instability. Calf is supple, nontender. Achilles tendon nontender, no palpable defect noted. Peripheral, vascular, lymphatic examination, skin, neurological, coordination, reflexes, sensation are within normal limits.X-rays ordered, obtained and reviewed independently today at [facility]: Not indicated or performed today.Previous films: 3 x-rays of the left ankle reveal no acute fractures or dislocations. Minimal arthritic changes noted about the tibiotalar joint and hindfoot.MRI left ankl independently reviewed by myself today with the patient: Posterior tibialis tendinopathy with low grade partial tearing and tenosynovitis. There is adjacent reactive edema at the posterior medial malleolus and there is also reactive edema at the medial navicular at the distal posterior tibial tendon insertion. Ankle soft tissue edema/swelling.Impres valerie: left distal tibia and navicular stress reaction and posterior tibial tendonitisPlan: I discussed my findings and the situation with the patient. We discussed potential treatment options at this time. Patient appears to be doing very well. He will continue gradually returning to regular shoewear and activities using pain as his guide. He will follow-up with us on an as needed basis. Patient agrees with this plan. All questions were answered.Speech recognition electrician control equipment software was used to create portions of this document. An attempt at proofreading has been made to minimize errors. Please call for corrections. Tierney Worrell PA-C [address] [place] [address] [address] [facility], [place], [address], [facility] 03/25/2024 11:08:10 04/11/2024 text/html I am seeing this patient under the supervision of Dr. Baez who was available but who did not see the patient. HPI: Patient is a 59-year-old male presenting to the office today for evaluation of bilateral hand pain. Reports that has been ongoing for a while. Reports pain and swelling and stiffness of the fingers, particularly the right middle finger and left index finger. Denies recent falls or injuries. Denies numbness or tingling. Denies clicking or locking of the fingers. He is here today for orthopedic consultation. Past family, medical, social history and review of systems has been reviewed, updated and is located in the patient's chart. Examination: The patient is well appearing, alert and oriented x3 and in no acute distress. Inspection of the bilateral hand and wrist reveals mild edema about the hand and digits particularly the left index finger MCP joint and right middle finger PIP joint. No atrophy, erythema, ecchymoses or deformity. Skin is intact, no open wounds. Full movement of the forearm, wrist and digits bilaterally with some stiffness of the digits particularly the left index finger and right middle finger. Intact median and ulnar innervated intrinsics. Intact extrinsic wrist and digit flexors and extensors. Intact sensation of median, ulnar and radial nerve distributions. Good capillary refill. Patient is tender about the left index finger MCP joint and right middle finger PIP joint. Otherwise nontender about the wrist, hand, and digits bilaterally. No triggering of any digit noted. Peripheral, vascular, lymphatic examination, skin, neurological, coordination, reflexes, sensation are within normal limits. X-rays ordered, obtained and reviewed independently today at [facility]: 4 view x-rays of bilateral hands reveal no acute fractures or dislocations. Right first CMC joint OA noted. Mild arthritic changes noted about the rest of the hand, wrist, and digits. Impression: Bilateral hand OA Plan: I discussed my findings and the situation with the patient. We discussed potential treatment options at this time. Patient had a previous prescription for meloxicam, he would like a refill for this. Refill provided, risks and benefits of the medication were discussed. Patient would like to hold off on cortisone injections for now. He was instructed on hand exercises to work on to avoid stiffness. He will follow-up with us on an as-needed basis. If symptoms persist or worsen or change or he would like a cortisone injection he will call the office. Patient understands and agrees with this plan. All questions were answered. Speech recognition electrician control equipment software was used to create portions of this document. An attempt at proofreading has been made to minimize errors. Please call for corrections. Tierney Worrell PA-C [address] [place] [address] [address] [facility], [place], [address], [facility] 04/11/2024 10:40:48 07/02/2024 text/html I am seeing this patient under the supervision of Dr. Baez who was available but who did not see the patient. Clinical update: Patient is here today for recheck. He is interested in cortisone injections today. He would like a cortisone injection for his right first CMC joint, right middle finger PIP joint, and left index finger PIP joint, as these joints are the ones bothering him at this time. Physical exam, imaging review, impression, and plan for today's visit updated below.HPI: Patient is a 59-year-old male presenting to the office today for evaluation of bilateral hand pain. Reports that has been ongoing for a while. Reports pain and swelling and stiffness of the fingers, particularly the right middle finger and left index finger. Denies recent falls or injuries. Denies numbness or tingling. Denies clicking or locking of the fingers. He is here today for orthopedic consultation.Past family, medical, social history and review of systems has been reviewed, updated and is located in the patient's chart.Examination: The patient is well appearing, alert and oriented x3 and in no acute distress. Inspection of the bilateral hand and wrist reveals mild edema about the hand and digits particularly the left index finger PIP joint and right middle finger PIP joint. No atrophy, erythema, ecchymoses or deformity. Skin is intact, no open wounds. Full movement of the forearm, wrist and digits bilaterally with some stiffness of the digits particularly the left index finger and right middle finger. Intact median and ulnar innervated intrinsics. Intact extrinsic wrist and digit flexors and extensors. Intact sensation of median, ulnar and radial nerve distributions. Good capillary refill. Patient is tender about the left index finger PIP joint and right middle finger PIP joint, as well as the right first CMC joint. Otherwise nontender about the wrist, hand, and digits bilaterally. No triggering of any digit noted. Peripheral, vascular, lymphatic examination, skin, neurological, coordination, reflexes, sensation are within normal limits.Previous films: 4 view x-rays of bilateral hands reveal no acute fractures or dislocations. Right first CMC joint OA noted. Mild arthritic changes noted about the rest of the hand, wrist, and digits.Impression: Bilateral hand OAPlan: I discussed my findings and the situation with the patient. We discussed potential treatment options at this time. Patient would like to proceed with cortisone injections for the right first CMC joint, right middle finger PIP joint, and left index finger PIP joint. We discussed the role of cortisone as well as its risks and benefits. Patient would like to proceed with an injection. Under sterile technique the patient's right first CMC joint was injected with 1 cc Kenalog and 1 cc lidocaine, and the right middle finger PIP joint and left index finger PIP joint were each injected with 0.5 cc Kenalog. Patient tolerated the procedure well. Post procedure protocol was discussed with the patient. He will follow-up on an as-needed basis. If symptoms persist or return or things worsen or change he will call the office. Patient understands and agrees with this plan. All questions were answered.Speech recognition electrician control equipment software was used to create portions of this document. An attempt at proofreading has been made to minimize errors. Please call for corrections. Tierney Worrell PA-C [address] [place] [address] [address], [place], [address], [facility] 07/02/2024 11:46:22
--- OUTSIDE RECORDS SUMMARY | 2024-07-28 12:36 | XMS_ITS ---
Author Organization Jared English MD Address [address] [place], [place] [id number] Care Team Providers Care Lpn Rn Name Role Phone Jared English Primary Care Provider Allergies No Known Allergies REASON FOR VISIT Discuss statin per MRI, NO Covid symptoms Medications Medication SIG (Take, Route, Frequency, Duration) Notes Start Date End Date Status Tremfya 100 MG/ML 1 mL Subcutaneous Active Omeprazole 40 MG TAKE 1 CAPSULE BY [facility] EVERY DAY Active Atorvastatin Calcium 40 MG 1 tablet Oral ly Once a day for 90 days 10/05/2023 Active Problems Problem Type SNOMED Code ICD Code Onset Dates Problem Status W/U Status Risk Notes Problem 072944497 Atherosclerosis of abdominal aorta (I70.0) Active confirmed Vital Signs Blood pressure systolic 102 mm Hg 10/05/19 24 Blood pressure diastolic 74 mm Hg 024 Height 67.5 in 10/05/2023 Weight 200 lbs 10/05/2023 BMI 30.86 kg/m2 10/05/2023 Encounters Encounter Location Date Provider Diagnosis Jared English MD [address] [place] [address] Drive [address] [place], [place] [phone] 10/05/2023 Jared English Atherosclerosis of abdominal aorta I70.0 Assessments Encounter Date Diagnosis (ICD Code) Assessment Notes Treatment Notes Treatment Clinical Notes Section Notes 10/05/2023 Atherosclerosis of abdominal aorta (ICD-10 - I70.0) patient verbalized understanding of the medication and directions for use Plan Of Treatment Medication Medication Name Sig Start Date Stop Date Notes Atorvastatin Calcium 40 MG 1 tablet Oral ly Once a day for 90 days 10/05/2023 Treatment Notes Assessment Notes Atherosclerosis of abdominal aorta patie nt verbalized understanding of the medication and directions for use Next Appt Details Provider Name:Jared Mckeon ier, 08/04/2024 09:30:00 AM, [address] [place] [address], [address], [place], [place], [id number], Progress Notes * Giovanni MANUEL SDOB:1965 (58 yo M)Acc No.[id number]:10/05/2023 Progress Notes Patient:?Giovanni Manuel S Provider:?Jared English MD :1965???Age:58 Y???Sex:Male Henrry e:10/05/2023 Address:[address] [place], [place] [phone] Subjective: * Chief Complaints: * ???Discuss statin per MRINO Covid symptoms * HPI: ???Symptom(s):? patient is a 58 yo male here for to discuss use a statins, had mri and had atherosclerosis of abdominal aorta. * ROS:?General/Constitutional:?Denies?Chills.?Denies?Fatigue.?Denies?Fever.?Denies?Headache.?ENT:?Patient denies?decreased sense of smell , any loss of taste , sore throat.?Denies?Sore throat.?Respiratory:?Denies?Cough.?Denies?Shortness of breath at rest.?Denies?Shortness of breath with exertion.?Gastrointestinal:?Denies?Diarrhea.?Denies?Nausea.?Musculoskeletal:?Patient denies?muscle aches.?Peripheral Vascular:?Patient denies?red and blue toes.? * Medical History:? * Surgical History:? * Hospitalization/Major Diagno stic Procedure:? * Medications:?TakingOmeprazol e 40 MG Capsule Delayed Release TAKE 1 CAPSULE BY MOUTH EVERY DAY Tremfya 100 MG/ML Solution Prefilled Syringe 1 mL Subcutaneous Medication List reviewed and reconciled with the patientTaking Omeprazole 40 MG Capsule Delayed Release TAKE 1 CAPSULE BY MOUTH EVERY DAY Taking Tremfya 100 MG/ML Solution Prefilled Syringe 1 mL Subcutaneous Medication List reviewed and reconciled with the patient * Allergies:?N.K.D.A.yes[Aller gies Verified] Objective: * Vitals:?Ht: 67.5, Wt:200, BM I:30.86, BP:102/74. * Examination: ???General Examination: ?GENERAL APPEARANCE:? alert, well hydrated, in no distress , male.?HEAD:? normocephalic.?SKIN:? good turgor.?HEART:? no murmurs, rubs, gallops, regular rate and rhythm.?LUNGS:? no wheezes, rales, rhonchi, good air movement, clear to auscultation bilaterally.? Assessment: * Assessment: 1.?Atherosclerosis of abdomi nal aorta - I70.0 (Primary)? Plan: * Treatment: * Procedure Codes:? * * Sign off status: Completed true * Provider:?Jared English MD Date:?0 10/05/2023 Generated for Julissa crenshaw/Geovanny/Kirtitting on:?07/28/2024 12:35 PM EST History and Physical Notes * HPI (History of Present Illness) Category Sub-Category Detail Notes Category Not es Symptom(s) patient is a 58 yo male here for to discuss use a statins, had mri and had atherosclerosis of abdominal aorta Examination Category Sub-Category Detail Notes Category Not es General Examination GENERAL APPEARANCE: alert, w ell hydrated, in no distress , male HEAD: normocephalic HEART: no murmurs, rubs, ga llops, regular rate and rhythm LUNGS: no wheezes, rales, r honchi, good air movement, clear to auscultation bilaterally SKIN: good turgor
--- OUTSIDE RECORDS SUMMARY | 2024-07-28 12:36 | XMS_ITS | Data Portability ---
Author Organization [facility], Main Office Address [address] [facility] [address] [place] [id number] Care Team Providers Care Copper Flotation Operator Name Role Phone DAR FLANAGAN Primary Care Provider Assessment No assessment recorded. Plan of Treatment Reminders Order Date Submit Date Provider Last Modified By Organization Details Last Modified Time Details Appointments None recorded. Lab None recorded. Referral dermatolo gist referral - for assitatan ce with psoriasis managemen t 2013 014 melissa Banks MD, [address] [place] [address], [address], 4 11:42:00 orthopedi c referral - for eval of left shoulder pain, ? rotator cuff compromis e 2013 014 melissa Tolliver MD, [address] [facility], [address], [address], 4 11:41:57 Procedures None recorded. Surgeries None recorded. Imaging None recorded. Medication Orders Prilosec OTC 20 mg tablet,de layed release 2013 014 laron [id number], [address] [place], [address], 4 14:27:47 clobetaso l 0.05 % shampoo 2013 014 INTERFACE [id number], [address] [place], [address], 4 09:56:55 Patient TargetsNo targets recorded. Patient InstructionsNo instructions recorded. Reason for Referral for eval of left shoulder pa in, ? rotator cuff compromise Referring Physician: Dar Flnaagan [facility], Encounter Date: 02/20/2014 for assitatance with psorias is management Referring Physician: Dar Flanagan [facility], Encounter Date: 02/20/2014 Problems Name Problem SNOMED Code Status Onset Date Resolution Date Notes Provider Name and Address Organization Details Recorded Time Patient status finding [id number] Completed 201301/12/2014 RECORDED 06/16/19 14 9:50AM BY DAE DORSEY ON/ADDEN DUM Not Available [facility] 4 05:20:36 Adult health examinat ion Completed 201301/12/2014 IMPRESSI ON: IMMUNIZA TION STATUS UTD SHORT OF FLU WHICH PT DECLINES . WILL SCREEN BASED ON RISK FACTORS. REGULAR DENTAL CARE AND SEATBELT USE ADVISED. DISTRACT ED DRIVING DISCUSSE D.; RECORDED 06/16/19 14 9:50AM BY DAE DORSEY ON/ADDEN DUM Not Available [facility] 4 05:20:36 Hypercho lesterol emia 89533357 Completed 201301/12/2014 RECORDED 06/16/19 14 9:50AM BY JOLEEN DORSEYATI ON/ADDEN DUM Not Available [facility] 4 05:20:36 Influenz a vaccine needed [id number] 06 Completed 201101/12/2014 RECORDED 04/30/20 12 11:05AM BY ERLIN SIMON [place], OFFICE VISIT Not Available [facility] 4 05:20:36 Patient status finding 230915111 Completed 201312/16/2013 RECORDED 06/16/19 14 9:50AM BY DAE DORSEY ON/ADDEN DUM Not Available [facility] 4 13:53:13 Asthma 269832449 Active 2013 IMPRESSI ON: MILD INTERMIT TANT AND CURRENTL Y WELL CONTROLL ED.; RECORDED 06/16/19 14 9:50AM BY KARLA TORIBIO I, OFFICE VISIT Not Available [facility] 4 05:20:36 Disorder of bursa of shoulder region 51238256 Active 2013 RECORDED 06/16/19 14 9:50AM BY KARLA TORIBIO I, OFFICE VISIT Not Available [facility] 4 05:20:36 Adult health examinat ion Completed 201312/16/2013 IMPRESSI ON: IMMUNIZA TION STATUS UTD SHORT OF FLU WHICH PT DECLINES . WILL SCREEN BASED ON RISK FACTORS. REGULAR DENTAL CARE AND SEATBELT USE ADVISED. DISTRACT ED DRIVING DISCUSSE D.; RECORDED 06/16/19 14 9:50AM BY KARLA TORIBIO I ANNOTATI ON/ADDEN DUM Not Available [facility] 4 13:53:13 Gastroes ophageal reflux disease 354818395 Active 2013 IMPRESSI ON: SYMPTOMS STABLE/W ELL CONTROLL ED. CONTINUE CURRENT REGIMEN. WILL GI TO CONSIDER F/U EGD WITH COLONOSC OPY NEXT YEAR.; RECORDED 06/16/19 14 9:50AM BY KARLA TORIBIO I, OFFICE VISIT Dar Flanagan MD [address] [facility] [address], [place], [address] , [facility] 4 14:27:46 Diaphrag matic hernia 19034619 Active 2013 RECORDED 06/16/19 14 9:50AM BY KARLA TORIBIO I, OFFICE VISIT Not Available [facility] 4 05:20:36 Pure hypercho lesterol emia 412346909 Active 2013 RECORDED 06/16/19 14 9:50AM BY KARLA TORIBIO I, OFFICE VISIT Not Available [facility] 4 05:20:36 Hypercho lesterol emia 96073068 Completed 201312/16/2013 RECORDED 06/16/19 14 9:50AM BY KARLA TORIBIO I ANNOTATI ON/ADDEN DUM Not Available [facility] 4 13:53:14 Lumbar sprain 159762143 Active 2013 IMPRESSI ON: SLOW TO RESOLVE, NO EVIDENCE FOR RADICULO JERARDO ON EXAM. WILL CONTINUE NSAID/MU SCLE RELAXANT AND HOME PT. REFER TO PMR IF PERSISTA NT/WORSE OVER NEXT COUPLE WEEKS.; RECORDED 06/16/19 14 9:50AM BY AKRLA TORIBIO I, OFFICE VISIT Not Available [facility] 4 05:20:36 Obesity 165902974 Active 2013 IMPRESSI ON: HEALTHIE R DIETARY CHOICES DISCUSSMark D. PHYSICAL ACTIVITY ADEQUATE . POTENTIA L PENITENTIARY HEALTH CONSEQUE NCES DISCUSSMark D.; RECORDED 06/16/19 14 9:50AM BY KARLA TORIBIO I, OFFICE VISIT Not Available [facility] 4 05:20:36 Psoriasi s 8344944 Active 2013 RECORDED 06/16/19 14 9:50AM BY KARLA TORIBIO I, OFFICE VISIT Dar Flanagan MD [address] [address], [place], [address] , [facility] 4 14:27:46 Influenz a vaccine needed 81149981214 06 Completed 201112/16/2013 RECORDED 04/30/20 12 11:05AM BY ERLIN SIMON [place], OFFICE VISIT Not Available [facility] 4 13:53:14 Right lower quadrant pain 339573854 Active 2013 IMPRESSI ON: PERISTEN T WORSENIN G ABDOMINA L PAIN X 4D, AFEBRILE , NON-ACUT E ABDOMEN; RECORDED 06/16/19 14 10:50AM BY TREASURE PARADA PA-C, OFFICE VISIT Not Available [facility] 4 05:20:36 Shoulder pain 14819351 Active Dar Flanagan MD [address] [address], [place], [address] , [facility] 4 14:27:46 Seborrhe ic keratosi s Active Dar Flanagan MD [address] [address], [place], [address] , [facility] 4 20:16:51 Rotator cuff tear arthropa thy 333661755 Active 2013 Unruly Flanagan MD [address] [address], [place], [address] , [facility] 4 10:52:29 Notes:06/16/2013: MYOCARDIA L INFARCTION - STATUS IS INACTIVE RECORDED 06/16/2013 9:50AM BY KARLA DODD, ANNOTATION/ADDENDUM ASTHMA - STATUS IS INACTIVE RECORDED 06/16/2013 9:50AM BY KARLA DODD, ANNOTATION/ADDENDUM ULCER DISEASE - STATUS IS INACTIVE RECORDED 06/16/2013 9:50AM BY KARLA DODD, KALEB/ADDENDUM Problem Notes None recorded. Procedures Surgical History Date Name Laterality Status Provider Name and Address Organization Details Recorded Time EGD completed Erlin Simon MA [facility] 02/20/2014 13:45:16 Imaging Results None recorded. Procedure Notes None recorded. Medical Equipment None Reported. Allergies No known drug allergies Medications Name Sig Start Date Stop Date Status Note LastModified by Organization Details LastModified Time Prescript ion - Prior Authoriza tion Request active Not Available Not Available Not Available cyclobenz aprine 10 mg tablet THREE TIMES DAILY, NEEDED 04/27 completed RECORDED 2 3:43PM BY DAR FLANAGAN MD, MEDICATIO N AUTO-INAC TIVATION; Not Available Not Available Not Available Prilosec 20 mg capsule,d elayed release DAILY 2011 active RECORDED 4 9:50AM BY KARLA DODD , OFFICE VISIT; Not Available Not Available Not Available ibuprofen 200 mg tablet DAILY active RECORDED 2 11:47AM BY DAR FLANAGAN MD, ANNOTATIO N/ADDENDU M; Not Available Not Available Not Available albuterol (refill) 90 mcg/actua tion aerosol inhaler EVERY 4 HRS NEEDED 2011 active RECORDED 4 9:50AM BY KARLA DODD , OFFICE VISIT; Not Available Not Available Not Available Prilosec OTC 20 mg tablet,de layed release Take 1 tablet every day by oral route for 30 days. 03/22 completed Not Available Not Available Not Available clobetaso l 0.05 % shampoo APPLY A THIN LAYER DAILY TO DRY SCALP.L EAVE FOR 15MIN,L ATHER THEN RINSE active Not Available Not Available No t Available naproxen TWO TIMES DAILY, NEEDED WITH FOOD 05/30 completed RECORDED 2 2:00PM BY DAR FLANAGAN MD, MEDICATIO N AUTO-INAC TIVATION; Not Available Not Available Not Available multivita min DAILY active RECORDED 4 9:50AM BY KARLA DODD , OFFICE VISIT; Not Available Not Available Not Available Symbicort 160 mcg-4.5 mcg/actua tion HFA aerosol inhaler TWO TIMES DAILY NEEDED 2011 active RECORDED 4 9:50AM BY KARLA DODD , OFFICE VISIT; Not Available Not Available Not Available Vitals Date Recorded Body height Body mass index (BMI) Body weight Oxygen saturation Oxygen saturation in Arterial blood by Pulse oximetry Heart rate Body temperature Systolic blood pressure Diastolic blood pressure Provider Name and Address Organization Details Last Updated DateTime 4 172.72 cm 28.4 kg/m2 26001.7 7319 g 98 % 98 % 60 /min 98.7 [degF] 109 mm[Hg] 72 mm[Hg] Erlin Simon MA [facility] 4 13:45:15 Social History None recorded. Functional Status None recorded. Mental Status None recorded. Family History Relationship Description Onset Age of this Age Resolved Age Notes LastModified by Organization Details LastModified Time Mother Malignant neoplastic disease stomac h abolcun Not available 02/20/2014 13:45:15 Father Heart disease abolcun Not available 2013 13:45:15 Father Hypertensive disorder abolcun Not available 2013 13:45:15 Medical History Condition Response Coronary Artery Disease N Gout N Other N Blood Diseases N Kidney Stones N Hyperthyroidism N Breast Cancer N mrsa exposure N Lung Disease N COPD N Depression N Hypothyroidism N Defects or Inherited Disease N Developmental or Behavioral Disorders N Breast Problem N Anesthesia Complications N Headaches/Migraines N Anxiety Disorder N Varicose Veins N Muscle, Joint, or Bone Problems N Obesity N Vision or Eye Problems N Arthritis N Head Injury/Concussion N Polyps N Infertility N Mental Disorder N Congenital Anomalies N Acid Reflux (GERD) Y Cancer N Stroke N ADHD N Endometriosis N High Cholesterol Y Liver Disease N Fibromyalgia N Headaches N Kidney Disease N Heart Problems N Ear or Hearing Problems N Hospitalizations N Thyroid Problems N GI Problems N Developmental Delay N Acne N Eating Disorder N Skin Problems N Anemia N Constipation N Bladder Problems N Mental Illness N Diabetes N Ovarian Cancer N Bedwetting N Blood Transfusions N Heart Problems/Murmur N Seizures/Epilepsy N Tuberculosis N AIDS/HIV N Congestive Heart Failure (CHF) N Eczema N Abuse/Domestic Violence N Diverticulitis N Asthma Y Allergies N Reflux/GERD N Hepatitis N Heart Disease N Pulmonary Embolism N Hypertension N Chicken Pox N Autism Spectrum Disorder (ASD) N Osteoporosis N Immunizations Vaccine Type Date Status Note Provider Nam e and Address Organization Details Recorded Time Tdap 07/25/2006 completed Not Available [facility] 12/16/2013 13:48:14 Past Encounters Encounter ID Performer Location Encounter Start Date Encounter Closed Date Diagnosis/Indication Diagnosis SNOMED-CT Code Diagnosis ICD10 Code Diagnosis Note [id number] [facility]Comm erce [address] [facility] [place] [address] 04/17/2012 00:00:00 [id number] [facility] [facility] [address] [place] [address] 04/30/2012 00:00:00 [id number] auto[facility] erce [address] [facility] [place] [address] 06/16/2013 00:00:00 [id number] Main Office [address] [facility] [address] [place] [address] 02/20/2014 13:20:33 02/20/2014 14:17:01 Psoriasis 6437343 Try a topical steropid while waiting to establish [facility] derm f/u. Shoulder pain 26915105 N ot urgent but mechanism of injury and duration of symptoms raises concern for rotator cuff pathology. Gastroesop hageal reflux disease 513231759 Well controlled without warning signs. Continue current regimen. Health Concerns Section Related Observation LastModified by Organization Detai ls LastModified Time None Recorded Concern Status LastModified by Organization Details LastModified Time None Recorded Advance Directives Directive None Recorded Payers Encounter Date Sequence Insurance Name Policy Number Policy Riggins Covered Member ID Riggins Member ID Guarantor Name 02/20/2014 1 [place] [facility] Giovanni Urbina Oviedo [id number]
--- OUTSIDE RECORDS SUMMARY | 2024-07-28 12:36 | XMS_ITS | Patient Health Record ---
Author Organization Jared English MD Address [address] [place], [place] [address] Care Team Providers Care Endoscopy Rn Name Role Phone Tameka Jared Primary Care Provider [phone] Allergies No Known Allergies Results Component Value Reference Range Notes Occult Blood, Stool, Guaiac Reviewed date:08/02/2023 10:39:00 AM Interpretation:Negative Performing Lab: Notes/Report: Negative Occult Blood, Stool, Guaiac Neg Hold Gold Reviewed date:01/04/2024 12:30:25 PM Interpretation: Performing Lab:[facility], [address] [place] [phone] Notes/Report: Hold Gold See Note Specimen held untested for 24 hours; Call to request Chemistry testing. Liver Panel Reviewed date:01/04/2024 12:30:49 PM Interpretation: Performing Lab:[facility], [address] [place] [phone] Notes/Report: Bilirubin Total 0.5 0.0-1.0 mg/dL Bilirubin Direct 0.2 0.0-0.5 mg/dL Aspartate Amino Transferase 24 5-37 U/L Alanine Aminotransferase 39 0-40 U/L Total Protein 7.4 6.5-8.0 g/dL Albumin Level 4.0 3.5-5.0 g/dL Alkaline Phosphatase 88 39-117 U/L Lipid Panel Reviewed date:01/04/2024 12:30:42 PM Interpretation: Performing Lab:[facility], [address] [place] [phone] Notes/Report: Triglycerides 84 <150 mg/dL Desirable Triglyceride: [...] low results in patients with liver disease. Comprehensive [place]. Panel Fa st (Not yet reviewed by provider) Interpretation: Performing Lab:[facility], [address] [place] [phone] Notes/Report: Sodium 142 135-145 mmol/L Potassium 4.1 3.3-5.1 mmol/L Chloride 107 96-108 mmol/L Carbon Dioxide 28 22-29 mmol/L Anion Gap 11 12-20 Blood Urea Nitrogen 16 9-16 mg/dL Creatinine 1.04 0.5-1.4 mg/dL Estimated Glomerular Filt Rate > 60 Chronic Kidney Disease: Estimated GFR < 60 mL/min/1.73m2 Severe Kidney Disease: Estimated GFR < 15 mL/min/1.73m2 Glucose Fasting 104 60-99 mg/dL A fasting glucose from 100-125 mg/dl is considered impaired (pre-diabetes). Calcium 9.4 8.4-10.2 mg/dL Bilirubin Total 0.6 0.0-1.0 mg/dL Aspartate Amino Transferase 30 5-37 U/L Alanine Aminotransferase 43 0-40 U/L Total Protein 7.3 6.5-8.0 g/dL Albumin Level 3.9 3.5-5.0 g/dL Alkaline Phosphatase 85 39-117 U/L UA ClnCatch+Micro w/rflx Cul t (Not yet reviewed by provider) Interpretation: Performing Lab:[facility], [address] [place] [phone] Notes/Report: [id number] Urine, Clean Catch Color Urine Yellow Appearance Urine Clear PH 6.0 5.0-9.0 Glucose Urine UA Negative Negative mg/dL Urine Blood Trace Negative Specific [place] - Urine 1.025 1.005-1.025 Urine Protein 30 (1+) Neg-Trace mg/dL Urine Ketones Negative Negative mg/dL Nitrite Urine Negative Negative Leukocyte Esterase Urine Negative Negative RBC Urine 6-10 0-2 /HPF WBC Urine 0-5 0-5 /HPF Squamous Epithelial Cell Urine 0-2 0-2 /HPF Bacteria Urine None Seen None Seen Hyaline Casts Urine 0-2 0-2 /LPF Complete Blood Count Auto Di ff Reviewed date:07/28/2024 12:33:45 PM Interpretation: Performing Lab:[facility], [address] [place] [phone] Notes/Report: White Blood Count 8.4 4.8-10.8 X10*3/uL Red Blood Count 4.72 4.60-5.80 X10*6/uL Hemoglobin 14.1 14.0-18.0 g/dl Hematocrit 43.0 42.0-52.0 % Mean Corpuscular Volume 91.1 80.0-98.0 fL Mean Corpuscular Hemoglobin 29.9 27.0-33.0 pg Mean Corpuscular HGB Conc 32.8 31.0-36.0 g/dl Red Cell Distribution Width 13.4 11.0-16.0 % Platelet Count 252 160-400 X10*3/uL Mean Platelet Volume 10.1 9.4-12.4 fL Neutrophils Percent Auto 60.7 45-73 % Imm Gran Pct Auto 1.1 0.0-0.4 % Lymphocytes Percent Auto 22.2 20-40 % Monocytes Percent Auto 12.6 2-11 % Eosinophils Percent Auto 2.9 0-4 % Basophils Percent Auto 0.5 0-2 % NRBC Pct Auto 0.0 0.0-0.2 /100WBC Neutrophils Absolute Auto 5.1 2.0-8.3 x10*3/u L Imm Gran Abs Auto 0.09 0.00-0.03 X10*3/uL Lymphocytes Absolute Auto 1.9 1.2-4.9 X10*3/u L Monocytes Absolute Auto 1.1 0.1-1.2 X10*3/uL Eosinophils Absolute Auto 0.2 0.0-0.4 X10*3/u L Basophils Absolute Auto 0.0 0.0-0.2 X10*3/uL NRBC Abs Auto 0.000 0.0-0.012 X10*3/uL Lipid Panel Reviewed date:07/28/2024 12:33:19 PM Interpretation: Performing Lab:[address] [phone] Notes/Report: Triglycerides 81 <150 mg/dL Desirable Triglyceride: less than 150 mg/dL Borderline High Triglyceride 150-199 mg/dL High Triglyceride: 200-499 mg/dL Very High Triglyceride: greater than or equal to 5OO mg/dL Cholesterol 134 <200 mg/dL Desirable Cholesterol: less than 200 mg/dL Borderline High Cholesterol: 200-239 mg/dL High Cholesterol: greater than 239 mg/dL LDL Cholesterol Calculated 76 <100 mg/dL Desirable LDL: less than 100 mg/dL Near Optimal/Above Optimal LDL: 110-129 mg/dL Borderline High LDL: 130-159 mg/dL High LDL: 160-189 mg/dL Very High LDL: greater than or equal to 190 mg/dL HDL Cholesterol 42 >40 mg/dL Desirable HDL: greater than 40 mg/dL Note: This HDL assay may give artificially low results in patients with liver disease. PSA,Total (Free>4and<10) Reviewed date:07/28/2024 12:33:26 PM Interpretation: Performing Lab:[address] [phone] Notes/Report: PSA,Total (Free>4and<10) 1.00 0.00-4.00 ng/mL A Free PSA was not performed: The percentage of Free PSA can be used to enhance the differentiation of prostate cancer from benign prostatic disease in subjects whose PSA levels are between 4.0 and 10.0 ng/mL. For subjects whose PSA levels are below 4.0 or above 10.0 ng/mL, the risk of prostate cancer is determined on the basis of the PSA alone. Therefore the % Free PSA is recommended only for those subjects whose PSA levels are between 4.0 and 10.0 ng/mL. PSA methodology: [place] i Chemiluminescent Microparticle Immunoassay (CMIA) Reason For Referral No Information Medications Medication SIG (Take, Route, Frequency, Duration) Notes Start Date End Date Status Omeprazole 40 MG TAKE 1 CAPSULE BY [facility] EVERY DAY for 90 Active Tremfya 100 MG/ML 1 mL Subcutaneous Active Atorvastatin Calcium 40 MG 1 tablet Oral ly Once a day for 90 days 10/05/2023 Active Immunizations Vaccine Route Administration Date Status Comme nts Fluarix Quadrivalent IM Intramuscular 03/02/2017 Administe red TDaP Unknown 12/02/2014 Administered Tetanus Unknown 12/02/2014 Administered Fluarix Quadrivalent IM Intramuscular 06/18/2018 Administe red Fluarix Quadrivalent Unknown 04/14/2019 Administered Fluarix Quadrivalent Unknown 04/05/2020 Administered cv s Fluarix Quadrivalent IM Intramuscular 07/19/2021 Administe red SARS-COV-2 Moderna Unknown 09/24/2020 Administered SARS-COV-2 Moderna Unknown 10/02/2020 Administered Fluarix Quadrivalent - 150 Unknown 04/12/2024 Administe red [facility] PPSV23 (Pnemovax) Unknown 07/04/2019 Refused Social History Tobacco Use: Social History Observation Description Date Details (start date - stop date) Never Smoker NA - NA Tobacco Use/Smoking Question Answer Notes Patient is a nonsmoker Additional Findings: Tobacco Non-User Cu rrent non-smoker, currently using no form of tobacco Alcohol Screen Question Answer Notes Did you have a drink contain ing alcohol in the past year? Yes How often did you have a dri nk containing alcohol in the past year? Monthly or less (1 point) How many drinks did you have on a typical day when you were drinking in the past year? 1 or 2 drinks (0 point) How often did you have 6 or more drinks on one occasion in the past year? Never (0 point) Points 1 Interpretation Negative Problems Problem Type SNOMED Code ICD Code Onset Dates Problem Status W/U Status Risk Notes Problem 533732351 Reflux esophagit is (K21.00) Active confirmed Problem 037183900 Atherosclerosis of abdominal aorta (I70.0) Active confirmed Problem Psoriasis (7334963) Psoriasis (L40.9) Active co nfirmed Problem Hypercholesterolemia (20004797) Hypercholesterolemia (E78.00) Active confirmed Problem 549380556 Mild intermitten t asthmatic bronchitis with acute exacerbation (J45.21) Active confirmed Vital Signs Blood pressure diastolic 74 mm Hg 10/05/2023 Height 67.5 in 10/05/2023 Blood pressure systolic 102 mm Hg 10/05/2023 Weight 200 lbs 10/05/2023 BMI 30.86 kg/m2 10/05/2023 Encounters Encounter Location Date Provider Diagnosis Jared English MD [address] [place] [id number] 01/04/2024 Jared English Hypercholesterolemia E78.00 and Atherosclerosis of abdominal aorta I70.0 Jared English MD [address] [place] [id number] 07/28/2024 Jared English Blood tests for rout ine general physical examination Z00.00 and Hypercholesterolemia E78.00 Jared English MD [address] [place] [address] Drive [address] [place] [id number] 08/02/2023 Jared English Microscopic hematuri a R31.29 ; Annual physical exam Z00.00 ; Psoriasis L40.9 ; Hypercholesterolemia E78.00 ; Reflux esophagitis K21.00 ; Colon cancer screening Z12.11 and Depression screening Z13.31 Jared English MD [address] [place] [id number] 10/05/2023 Jared English Atherosclerosis of abdominal aorta I70.0 Assessments Encounter Date Diagnosis (ICD Code) Assessment Notes Treatment Notes Treatment Clinical Notes Section Notes 01/04/2024 Hypercholesterolemia (ICD-10 - E78.00) 01/04/2024 Atherosclerosis of abdominal aorta (ICD-10 - I70.0) 07/28/20[address] tests [address] ine general physical examination (ICD-10 - Z00.00) 08/02/2023 Microscopic hematuri a (ICD-10 - R31.29) need results of mri and last visit at urology/ records request will be sent 08/02/2023 Annual physical exam (ICD-10 - Z00.00) labs reviewed and discussed with patient 10/05/2023 Atherosclerosis of abdominal aorta (ICD-10 - I70.0) patient verbalized understanding of the medication and directions for use 07/28/2024 Hypercholesterolemia (ICD-10 - E78.00) 08/02/2023 Psoriasis (ICD-10 - L40.9) has recovered on meds 08/02/2023 Hypercholesterolemia (ICD-10 - E78.00) doing well on no meds, will contoinue to monitor 08/02/2023 Reflux esophagitis (ICD-10 - K21.00) stable, will continue current regiment 08/02/2023 Colon cancer screeni ng (ICD-10 - Z12.11) guaiac negative 08/02/2023 Depression screening (ICD-10 - Z13.31) negative screen Plan Of Treatment Pending Test Test Name Order Date Electrocardiogram (EKG) 06/21/2018 Comprehensive [place]. Panel Fast 5 UA ClnCatch+Micro w/rflx Cult 07/28/2024 Next Appt Details Provider Name:Jared Mckeon ier, 08/04/2024 09:30:00 AM, [address] [facility], [address], [place], [place], [phone], Insurance Providers Payer Name Payer Address Payer Phone Subscriber Number Group Number Insured Name Patient Relationship to Insured Coverage Start Date Coverage End Date [facility] [address] [place], [place] [id number] Giovanni Manuel Self - patient is the insured Medical (General) History Medical History History ICD Code HDL 65, TRIGL 203, LDL 185 NON fasting Colonoscopy 07/21/2016 w/Dr. Carmelita pizarro 10 years hematuria evalu scope and mri mri is on 07/20/23 urology note tremfya is for psoriasis
--- OUTSIDE RECORDS SUMMARY | 2024-07-28 12:36 | XMS_ITS | Continuity of Care Document ---
Author Organization [facility], KEVIN Zelda 1st Floor Address [address] [place] [address] Care Team Providers Care Employment Advisor Name Role Phone SRIKANTH PATINO Primary Care Provider [phone] Assessment No assessment recorded. Plan of Treatment Reminders Order Date Submit Date Provider Last Modified By Organization Details Last Modified Time Details Appointments None record ed. Lab None record ed. Referral None record ed. Procedures None record ed. Surgeries None record ed. Imaging None record ed. Medication Orders None record ed. Patient TargetsNo targets recorded. Patient InstructionsNo instructions recorded. Reason for Referral None Reported. Problems Name Problem SNOMED Code Status Onset Date Resolution Date Notes Provider Name and Address Organization Details Recorded Time Trochante jyoti bursitis of left hip 235847041300 103 Active 2017 Problem Code: M70.62; Problem Code Type: ICD-10; Status: 'A'; Not Available Formerly [facility] 4 11:27:35 Problem Notes None recorded. Procedures Surgical History Date Name Laterality Status Provider Name and Address Organization Details Recorded Time 5 Small Joint Kenalog Injection, L/R completed Tierney Worrell PA-C [address], [place], [address], [facility] 07/02/2024 11:45:49 5 Small Joint Kenalog Injection, Bilateral completed Tierney Worrell PA-C [address], [place], [address], [facility] 07/02/2024 11:45:44 Imaging Results None recorded. Procedure Notes None [...] Updated DateTime 07/02/2024 172.72 cm 30.4 kg/m2 47758.47 g Danna Suresh [place] - [facility] 07/02/2024 10:29:21 Social History None recorded. Functional Status None recorded. Mental Status None recorded. Family History Nothing Reported. Medical History No medical history recorded. Past Encounters Encounter ID Performer Location Encounter Start Date Encounter Closed Date Diagnosis/Indication Diagnosis SNOMED-CT Code Diagnosis ICD10 Code Diagnosis Note [id number] TOMMIE Brooks [address] [facility] [place] [address] 07/02/2024 10:19:01 07/11/2024 13:16:52 Osteoarthritis of joint of bilateral hands 6084752027 61135 M19.041 M19.042 Health Concerns Section Related Observation LastModified by Organization Detai ls LastModified Time None Recorded Concern Status LastModified by Organization Details LastModified Time None Recorded Payers Encounter Date Sequence Insurance Name Policy Number Policy Riggins Covered Member ID Riggins Member ID Guarantor Name 07/02/2024 1 [facility] Danna Hoyt [id number] Giovanni Hoyt Notes Date Note Type Note Provider Name and Address Organization Details Recorded Time 07/02/2024 text/html I am seeing this patient [...] this plan. All questions were answered.Speech recognition chip applying machine tender software was used to create portions of this document. An attempt at proofreading has been made to minimize errors. Please call for corrections. Tierney Worrell PA-C [address] [place] [address] [address], [place], [address], [facility] 07/02/2024 11:46:22
--- OUTSIDE RECORDS SUMMARY | 2024-07-28 12:36 | XMS_ITS ---
Author Organization Jared English MD Address [address] [place], [place] [address] Care Team Providers Care Director Client Services Name Role Phone Tameka Jared Primary Care Provider Results Component Value Reference Range Notes Comprehensive [place]. Panel Fa st (Not yet reviewed by provider) Interpretation: Performing Lab:[facility], [address] [place] [phone] Notes/Report: Sodium 142 135-145 mmol/L Potassium 4.1 [...] (Not yet reviewed by provider) Interpretation: Performing Lab:[facility], [address] [place] [phone] Notes/Report: [id number] Urine, Clean Catch Color Urine Yellow Appearance Urine Clear PH 6.0 5.0-9.0 Glucose Urine UA Negative Negative mg/dL Urine Blood Trace Negative Specific [place] - Urine 1.025 1.005-1.025 Urine Protein 30 [...] ff Reviewed date:07/28/2024 12:33:45 PM Interpretation: Performing Lab:[facility], [address] [place] [phone] Notes/Report: White Blood Count 8.4 4.8-10.8 X10*3/uL [...] Panel Reviewed date:07/28/2024 12:33:19 PM Interpretation: Performing Lab:[address] [phone] Notes/Report: Triglycerides 81 <150 mg/dL Desirable Triglyceride: [...] (Free>4and<10) Reviewed date:07/28/2024 12:33:26 PM Interpretation: Performing Lab:[address] [phone] Notes/Report: PSA,Total (Free>4and<10) 1.00 0.00-4.00 ng/mL A [...] between 4.0 and 10.0 ng/mL. PSA methodology: Mora Alinity i Chemiluminescent Microparticle Immunoassay (CMIA) REASON FOR VISIT yearly fasting labs Encounters Encounter Location Date Provider Diagnosis Jared English MD [address] [place] [address] [place] [id number] 07/28/2024 Jared English Blood tests for rout ine general physical examination Z00.00 and Hypercholesterolemia E78.00 Assessments Encounter Date Diagnosis (ICD Code) Assessment Notes Treatment Notes Treatment Clinical Notes Section Notes 07/28/2024 Blood tests for rout ine general physical examination (ICD-10 - Z00.00) 07/28/2024 Hypercholesterolemia (ICD-10 - E78.00) Plan Of Treatment Pending Test Test Name Order Date Comprehensive [place]. Panel Fast UA ClnCatch+Micro w/rflx Cult 07/28/2024 Next Appt Details Provider Name:Jared Mckeon ier, 08/04/2024 09:30:00 AM, [address] [place] [address], Suite [facility], [place], [place], [phone], Progress Notes * Giovanni MANUEL SDOB:1965 (59 yo M)Acc No.[id number]:07/28/2024 Progress Note Patient:?Giovanni MANUEL S Provider:?Jared English MD :1965???Age:59 Y???Sex:Male Henrry e:07/28/2024 Address:[address] [place], [place] [id number] Subjective: * Chief Complaints: * ???1. Yearly fasting labs. * Medical History:? Objective: * Vitals:? Assessment: * Assessment: 1.?Blood tests for routine g eneral physical examination - Z00.00 (Primary)???2.?Hypercholesterolemia - E78.00??? Plan: * Treatment: 2.?Hypercholesterolemia?LAB: Comprehensive [place]. Panel Fast (Collection Date & Time - 07/28/2024 07:00 AM) ?LAB: UA ClnCatch+Micro w/rflx Cult (Collection Date & Time - 07/28/2024 07:00 AM) ?LAB: Complete Blood Count Auto Diff (Collection Date & Time - 07/28/2024 07:00 AM) ?LAB: Lipid Panel (Collection Date & Time - 07/28/2024 07:00 AM) ?LAB: PSA,Total (Free>4and<10) (Collection Date & Time - 07/28/2024 07:00 AM) * Procedure Codes:?51886 VENIP UNCT, ROUTINE* * * The named appointment provid er may or may not be the originator of this progress note, and it is not deemed complete until electronically signed by the appointment provider. Sign off status: Pending * Provider:?Jared English MD Date:?0 07/28/2024 Generated for Julissa crenshaw/Geovanny/Dinh on:?07/28/2024 12:35 PM EST
--- OUTSIDE RECORDS SUMMARY | 2024-07-28 12:36 | XMS_ITS | Patient Health Record ---
Author Organization [facility] Address [address] [place] [address] Care Team Providers Care Lifestyle Director Name Role Phone Jared English MD Primary Care Provider Eliseo Whitaker Jr Unavailable REASON FOR REFERRAL No Information MEDICATIONS Medication SIG (Take, Route, Frequency, Duration) Notes Start Date End Date Status Omeprazole Active Ibuprofen Active Multivitamin Active IMMUNIZATIONS Vaccine Route Administration Date Status Comme nts Influenza Unknown 2019 Administered SOCIAL HISTORY Tobacco Use: Social History Observation Description Date Details (start date - stop date) Never Smoker NA - NA Sex Assigned At : Social History Observation Description Sex Assigned At Unknown Tobacco Use/Smoking Question Answer Notes Patient is a nonsmoker Alcohol Screen Question Answer Notes Did you have a drink contain ing alcohol in the past year? Yes How often did you have a dri nk containing alcohol in the past year? 2 to 3 times a week (3 points) How many drinks did you have on a typical day when you were drinking in the past year? 1 or 2 drinks (0 point) How often did you have 6 or more drinks on one occasion in the past year? Never (0 point) Points 3 Interpretation Negative PROBLEMS Problem Type ICD Code Onset Dates Problem Status W/U Status Risk SNOMED Code Notes Problem GERD without esophagitis (K21.9) Active confirmed Gastroesophagea l reflux disease (647254780) PLAN OF TREATMENT Future Test Test Name Order Date UPPER GI ENDOSCOPY 03/17/2020 Insurance Providers Payer Name Payer Address Payer Phone Subscriber Number Group Number Insured Name Patient Relationship to Insured Coverage Start Date Coverage End Date [facility] [address] [place] [id number] MASON VELA Self - patient is the insured MEDICAL (GENERAL) HISTORY Medical History History ICD Code acid reflux Surgical History Surgery Date(Month/Year) rotator cuff tear repair - bilateral
== END 2024-07-28 10:58 | disposition home or self-care (01) ==
LOC: HO.LNP 10:57
PROVIDERS: Visit Provider Internal Medicine
DX: Z00.00 Encounter for general adult medical examination without abnormal findings (principal); E78.00 Pure hypercholesterolemia, unspecified; Z12.5 Encounter for screening for malignant neoplasm of prostate
CPT/HCPCS: 80053; 80061; 81001; 84153; 85025

== ENCOUNTER 2024-11-18 15:09 | Outpatient (REF) | payer OTHER, SELFPAY ==
[2024-11-18 15:24] LABS: MANUAL DIFF FLAG NO
[2024-11-18 17:06] LABS: Basophils Absolute Auto 0.1 X10*3/uL (0.0-0.2); Basophils Percent Auto 0.8 % (0-2); Eosinophils Absolute Auto 0.3 X10*3/uL (0.0-0.4); Eosinophils Percent Auto 2.8 % (0-4); Hemoglobin 13.8 g/dl (14.0-18.0); Imm Gran Abs Auto 0.06 X10*3/uL (0.00-0.03); Imm Gran Pct Auto 0.7 % (0.0-0.4); Lymphocytes Absolute Auto 1.5 X10*3/uL (1.2-4.9); Lymphocytes Percent Auto 17.2 % (20-40); Mean Corpuscular HGB Conc 32.9 g/dl (31.0-36.0); Mean Corpuscular Hemoglobin 30.1 pg (27.0-33.0); Mean Corpuscular Volume 91.5 fL (80.0-98.0); Mean Platelet Volume 9.7 fL (9.4-12.4); Monocytes Percent Auto 11.2 % (2-11); Neutrophils Percent Auto 67.3 % (45-73); Platelet Count 280 X10*3/uL (160-400); Red Blood Count 4.59 X10*6/uL (4.60-5.80); Red Cell Distribution Width 12.3 % (11.0-16.0); White Blood Count 8.9 X10*3/uL (4.8-10.8)
[2024-11-18 17:38] LABS: Rheumatoid Factor < 13.0 IU/mL (<15.0)
--- OUTSIDE RECORDS SUMMARY | 2024-11-18 17:40 | XMS_ITS ---
Author Organization Jared English MD Address [address] [place] [phone] Care Team Providers Care Material Assembler Name Role Phone TamekaMookn Primary Care Provider REASON FOR VISIT ER visit rec'd Encounters Encounter Location Date Provider Diagnosis Jared English MD [address] [facility] [address] [place] [phone] 11/06/2024 Jared English Plan Of Treatment Next Appt Details Provider Name:Jared rodríguez, 12/01/2024 11:30:00 AM, [address] [place] [address], [place] [address], [place], [place], [phone], Provider Name:Jared rodríguez, 02/05/2025 07:00:00 AM, [address] [place] [address], [place] [address], [place], [place], [phone], Provider Name:Jared rodríguez, 07/31/2025 07:15:00 AM, [address], [address], [place], [phone], Provider Name:Jared rodríguez, 08/06/2025 01:00:00 PM, [address] [facility] [address] [facility] [address], [address], [place], [place], [phone], Progress Notes * Giovanni MANUEL SDOB:1965 (59 yo M)Acc No.[id number]:11/06/2024 Patient:?Giovanni MANUEL S :1965???Age:59 Y???Sex:Male Address:[address] [place] [address], [place], [address] * true * Date:? Generated for Julissa crenshaw/Geovanny/eTmargosmitting on:?11/18/2024 05:40 PM EDT
[2024-11-18 17:49] LABS: Erythrocyte Sedimentation Rate 26 MM/HR (0-15)
[2024-11-20 02:18] LABS: A. Phagocytphilium DNA,RT-PCR NOT DETECTED (NOT DETECTED); Babesia Microti DNA, RT-PCR NOT DETECTED (NOT DETECTED); Borrelia Miyamotoi,DNA RT-PCR NOT DETECTED (NOT DETECTED); E.Chaffeensis DNA RT-PCR NOT DETECTED (NOT DETECTED); Lyme(Borrelia ssp)DNA RT-PCR NOT DETECTED (NOT DETECTED)
== END 2024-11-18 15:10 | disposition home or self-care (01) ==
LOC: HO.LAB 15:09
PROVIDERS: PCP Internal Medicine; Visit Provider Internal Medicine
DX: M25.50 Pain in unspecified joint (principal)
CPT/HCPCS: 36415; 85025; 85652; 86431; 87468; 87469; 87478; 87484; 87798

== ENCOUNTER 2025-02-09 07:00 | Outpatient (REF) | payer OTHER, SELFPAY ==
--- OUTSIDE RECORDS SUMMARY | 2024-08-04 05:30 | XMS_ITS ---
Author Organization Jared English MD Address [address] [place], [place] [id number] Care Team Providers Care City Planner Name Role Phone Tameka Jared Primary Care Provider Allergies No Known Allergies REASON FOR VISIT annual visit Medications Medication SIG (Take, Route, Frequency, Duration) Notes Start Date End Date Status Omeprazole 40 MG TAKE 1 CAPSULE BY [facility] EVERY DAY Active Atorvastatin Calcium 40 MG 1 tablet Oral ly Once a day 10/05/2023 Active Social History Tobacco Use: Social History Observation [...] Never (0 point) Points 1 Interpretation Negative Vital Signs Blood pressure systolic 122 mm Hg 08/05/19 25 Blood pressure diastolic 78 mm Hg 025 Height 67.5 in 08/04/2024 Weight 206 lbs 08/04/2024 BMI 31.78 kg/m2 08/04/2024 weight is up 6 pounds since 5--24 Encounters Encounter Location Date Provider Diagnosis Jared English MD [address] [place] [address] Drive [address] [place] [phone] 08/04/2024 Jared English Hypercholesterolemia E78.00 ; Annual physical exam Z00.00 ; Psoriasis L40.9 ; Reflux esophagitis K21.00 ; Colon cancer screening Z12.11 and Depression screening Z13.31 Assessments Encounter Date Diagnosis (ICD Code) Assessment Notes Treatment Notes Treatment Clinical Notes Section Notes 08/04/2024 Hypercholesterolemia (ICD-10 - E78.00) doing well on meds, will continue current regiment anf will continue to monitor 08/04/2024 Annual physical exam (ICD-10 - Z00.00) labs reviewed and discussed with patient 08/04/2024 Psoriasis (ICD-10 - L40.9) well controlled, will cntinue current regiment 08/04/2024 Reflux esophagitis (ICD-10 - K21.00) stable, will continue urrent regiment 08/04/2024 Colon cancer screeni ng (ICD-10 - Z12.11) guaiac negative 08/04/2024 Depression screening (ICD-10 - Z13.31) negative screen Plan Of Treatment Medication Medication Name Sig Start Date Stop Date Notes Omeprazole 40 MG TAKE 1 CAPSULE BY [facility] EVERY DAY Atorvastatin Calcium 40 MG 1 tablet Orally Once a day 08/2023 Treatment Notes Assessment Notes Hypercholesterolemia doing well on meds, will continue current regiment anf will continue to monitor Annual physical exam labs reviewed and d iscussed with patient Psoriasis well controlled, yesica l cntinue current regiment Reflux esophagitis stable, will continu e urrent regiment Colon cancer screening guaiac negative Depression screening negative screen Pending Test Test Name Order Date Liver Panel 08/04/2024 Lipid Panel 08/04/2024 Next Appt Details Provider Name:Jared Mckeon ier, 02/12/2025 10:15:00 AM, [address] [facility], [address], [place], [place], [phone], Provider Name:Jared Mckeon ier, 07/31/2025 07:15:00 AM, [address] [facility], [address], [place], [place], [phone], Provider Name:Jared Mckeon ier, 08/06/2025 01:00:00 PM, [address] [facility], [address], [place], [place], [phone], Progress Notes * Giovanni MANUEL SDOB:1965 (59 yo M)Acc No.[id number]:08/04/2024 Progress Notes Patient: Giovanni LORA Provider: Rebel English MD :1965 A ge:59 Y S ex:Male Date:08/04/2024 Address:[address] [place], [place] [phone] Subjective: * Chief Complaints: * A nnual visit * HPI: D epression Screening: PHQ-9 L ittle interest or pleasure in doing things N ot at all, F eeling down, depressed, or hopeless N ot at all, T rouble falling or staying asleep, or sleeping too much N ot at all, F eeling tired or having little energy N ot at all, P oor appetite or overeating N ot at all, F eeling bad about yourself or that you are a failure, or have let yourself or your family down N ot at all, T rouble concentrating on things, such as reading the newspaper or watching television N ot at all, M oving or speaking so slowly that other people could have noticed; or the opposite, being so fidgety or restless that you have been moving around a lot more than usual N ot at all, T houghts that you would be better off or of hurting yourself in some way N ot at all, T otal Score 0 . I nterpretation and Intervention D epression Screening Findings N egative, F ollow-Up for Depression : review of PHQ-9 found negative result, no follow-up needed. C ommunication Needs: Communication Needs D oes the patient have a hearing impairment N o, D oes the patient have a vision impairment? Y es, I f yes, what is the vision impairment? G lasses, D oes the patient have a cognition impairment? N o. S MIRIAM Questions: SDOH Questions I n the past year have you been worried about losing housing? N o, I n the past year have you or any family members you live with been unable to get any of the following when it was really needed? Check all that apply: N one. S ymptom(s): patient is a 59 yo male here for annual visit with review of recent labs and follow up of chronic issues. * ROS: G eneral/Constitutional: Patient denies f atigue, headache. C hange in appetite?denies. C hills d enies. F ever d enies. O phthalmologic: Blurred vision d enies. D ischarge d enies. P ain d enies. E NT: Patient denies d ecreased sense of smell, any loss of taste, sore throat. D ecreased hearing d enies. S ore throat d enies. S wollen glands?denies. E ndocrine: Cold intolerance d enies. E xcessive thirst d enies. H eat intolerance d enies. W eight loss d enies. R espiratory: Cough d enies. S hortness of breath at rest d enies. S hortness of breath with exertion d enies. W heezing d enies. C ardiovascular: Chest pain at rest d enies. C hest pain with exertion?denies. I rregular heartbeat d enies. S hortness of breath d enies. ? G astrointestinal: Abdominal pain d enies. C hange in bowel habits d enies. D iarrhea d enies. N ausea d enies. R ectal bleeding d enies. V omiting d enies . G enitourinary: Blood in urine d enies. D ifficulty urinating d enies. F requent urination d enies. M usculoskeletal: Patient denies m uscle aches. P ainful joints d enies. W eakness d enies. P eripheral Vascular: Patient denies r ed and blue toes. S kin: Dry skin d enies. I tching d enies. D enies?Mole(s), changes in moles, new moles or any lesions of concern. D enies P hotosensitivity. R paula d enies. N eurologic: Dizziness d enies. F ainting d enies. H eadache?denies. * Medical History: * Surgical History: * Hospitalization/Major Diagno stic Procedure: * Family History: F ather: 61 yrs. M other: 65 yrs, diagnosed with Cancer. 2 brother(s) . 2 son(s) , 2 daughter(s) - healthy. . FATHER- CARDIAC MOTHER- STOMACH CANCER, No pertinent family medical history, Denies mental health/substance abuse family history, Denies mental health/substance abuse family history, Denies mental health/substance abuse family history, Denies mental health/substance abuse family history. * Social History: T obacco Use: T obacco Use/Smoking P atient is a n onsmoker, A dditional Findings: Tobacco Non-User C urrent non-smoker, currently using no form of tobacco. D rugs/Alcohol: A lcohol Screen D id you have a drink containing alcohol in the past year? Y es, H ow often did you have a drink containing alcohol in the past year? M onthly or less (1 point), H ow many drinks did you have on a typical day when you were drinking in the past year? 1 or 2 drinks (0 point), H ow often did you have 6 or more drinks on one occasion in the past year? N ever (0 point), P oints 1 , I nterpretation N egative. M iscellaneous: C affeine: yes, frequency:, 1-2 cups per day. Children: yes. Exercise: yes, weight and cardio. Home smoke detector use: yes. Housing: owning. Living with: spouse, family. Marital status: . Occupation: weeks/months/years, unemployed,employed, works part-time. Pets: none. Travel outside of the [place]: no. * Medications: T akingAtorvastatin Calcium 40 MG Tablet 1 tablet Orally Once a day Omeprazole 40 MG Capsule Delayed Release TAKE 1 CAPSULE BY MOUTH EVERY DAY Taking Atorvastatin Calcium 40 MG Tablet 1 tablet Orally Once a day Taking Omeprazole 40 MG Capsule Delayed Release TAKE 1 CAPSULE BY MOUTH EVERY DAY DiscontinuedTremfya 100 MG/ML Solution Prefilled Syringe 1 mL Subcutaneous Medication List reviewed and reconciled with the patientDiscontinued Tremfya 100 MG/ML Solution Prefilled Syringe 1 mL Subcutaneous Medication List reviewed and reconciled with the patient * Allergies: N .K.D.A.yes[Allergies Verified] Objective: * Vitals: H t: 67.5, Wt: 206, BMI:31.78, BP:122/78, Repeat BP:124/86, Wt-k.44. weight is up 6 pounds since 10-05-23. * P ast Orders: L ab:PSA,Total (Free>4and<10) (Order Date - 07/28/2024) (Collection Date & Time - 07/28/2024 07:00 AM) Value Reference Range PSA,Total (Free>4and<10) 1.00 0.00-4.00 - ng/ mL L ab:UA ClnCatch+Micro w/rflx Cult (Order Date - 07/28/2024) (Collection Date & Time - 07/28/2024 07:00 AM) Value Reference Range Color Urine Yellow - Appearance Urine Clear - PH 6.0 5.0-9.0 - Glucose Urine UA Negative Negative - mg/dL Urine Blood Trace A Negative - Specific Orient - Urine 1.025 1.005-1.025 - Urine Protein 30 (1+) A Neg-Trace - mg/dL Urine Ketones Negative Negative - mg/dL Nitrite Urine Negative Negative - Leukocyte Esterase Urine Negative Negative - RBC Urine 6-10 A 0-2 - /HPF WBC Urine 0-5 0-5 - /HPF Squamous Epithelial Cell Urine 0-2 0-2 - /HP F Bacteria Urine None Seen None Seen - Hyaline Casts Urine 0-2 0-2 - /LPF L ab:Complete Blood Count Auto Diff (Order Date - 07/28/2024) (Collection Date & Time - 07/28/2024 07:00 AM) Value Reference Range White Blood Count 8.4 4.8-10.8 - X10*3/uL Red Blood Count 4.72 4.60-5.80 - X10*6/uL Hemoglobin 14.1 14.0-18.0 - g/dl Hematocrit 43.0 42.0-52.0 - % Mean Corpuscular Volume 91.1 80.0-98.0 - fL Mean Corpuscular Hemoglobin 29.9 27.0-33.0 - pg Mean Corpuscular HGB Conc 32.8 31.0-36.0 - g/ dl Red Cell Distribution Width 13.4 11.0-16.0 - % Platelet Count 252 160-400 - X10*3/uL Mean Platelet Volume 10.1 9.4-12.4 - fL Neutrophils Percent Auto 60.7 45-73 - % Imm Gran Pct Auto 1.1 H 0.0-0.4 - % Lymphocytes Percent Auto 22.2 20-40 - % Monocytes Percent Auto 12.6 H 2-11 - % Eosinophils Percent Auto 2.9 0-4 - % Basophils Percent Auto 0.5 0-2 - % NRBC Pct Auto 0.0 0.0-0.2 - /100WBC Neutrophils Absolute Auto 5.1 2.0-8.3 - x10* 3/uL Imm Gran Abs Auto 0.09 H 0.00-0.03 - X10*3/uL Lymphocytes Absolute Auto 1.9 1.2-4.9 - X10* 3/uL Monocytes Absolute Auto 1.1 0.1-1.2 - X10*3/ uL Eosinophils Absolute Auto 0.2 0.0-0.4 - X10* 3/uL Basophils Absolute Auto 0.0 0.0-0.2 - X10*3/ uL NRBC Abs Auto 0.000 0.0-0.012 - X10*3/uL L ab:Comprehensive [place]. Panel Fast (Order Date - 07/28/2024) (Collection Date & Time - 07/28/2024 07:00 AM) Value Reference Range Sodium 142 135-145 - mmol/L Bilirubin Total 0.6 0.0-1.0 - mg/dL Aspartate Amino Transferase 30 5-37 - U/L Alanine Aminotransferase 43 H 0-40 - U/L Total Protein 7.3 6.5-8.0 - g/dL Albumin Level 3.9 3.5-5.0 - g/dL Alkaline Phosphatase 85 39-117 - U/L Potassium 4.1 3.3-5.1 - mmol/L Chloride 107 96-108 - mmol/L Carbon Dioxide 28 22-29 - mmol/L Anion Gap 11 L 12-20 - Blood Urea Nitrogen 16 9-16 - mg/dL Creatinine 1.04 0.5-1.4 - mg/dL Estimated Glomerular Filt Rate > 60 - Glucose Fasting 104 H 60-99 - mg/dL Calcium 9.4 8.4-10.2 - mg/dL L ab:Lipid Panel (Order Date - 07/28/2024) (Collection Date & Time - 07/28/2024 07:00 AM) Value Reference Range Triglycerides 81 <150 - mg/dL Cholesterol 134 <200 - mg/dL LDL Cholesterol Calculated 76 <100 - mg/dL HDL Cholesterol 42 >40 - mg/dL * Examination: G eneral Examination: GENERAL APPEARANCE: w ell developed, well nourished, in no acute distress. HEAD: n ormocephalic, atraumatic. EYES: p upils equal, round, reactive to light and accommodation, sclera non-icteric. EARS: n ormal, abnormal with small white papules in both ears 3 mm. appear benign. ORAL CAVITY: m ucosa moist. THROAT: c lear. NECK/THYROID: n beryl supple, full range of motion, no cervical lymphadenopathy, no bruits. SKIN: w arm and dry, no suspicious lesions. HEART: r egular rate and rhythm, S1, S2 normal, no murmurs.? LUNGS: c lear to auscultation bilaterally. ABDOMEN: s oft, nontender, nondistended, bowel sounds present, normal, no organomegaly , no masses palpable. RECTAL EXAM: n ormal tone, no external hemorrhoids, no masses palpable, prostate normal, stool guaiac negative. MALE GENITOURINARY: c ircumcised, no penile lesions or discharge, testes descended bilaterally, no testicular mass. EXTREMITIES: n o clubbing, cyanosis, or edema. NEUROLOGIC: n onfocal, motor strength normal upper and lower extremities, sensory exam intact. Assessment: * Assessment: 1. A nnual physical exam - Z00.00 (Primary) 2 . H ypercholesterolemia - E78.00 3 . P soriasis - L40.9 4 . R eflux esophagitis - K21.00? 5. C olon cancer screening - Z12.11 6 . D epression screening - Z13.31 Plan: * Treatment: 2. H ypercholesterolemia Continue Atorvastatin Calcium Tablet, 40 MG, 1 tablet, Orally, Once a day. L AB: Liver Panel (Ordered for 02/04/2025) L AB: Lipid Panel (Ordered for 02/04/2025) Notes: doing well on meds, will continue current regiment anf will continue to monitor 3. P soriasis Notes: well controlled, will cntinue current regiment 4. R eflux esophagitis Continue Omeprazole Capsule Delayed Release, 40 MG, TAKE 1 CAPSULE BY MOUTH EVERY DAY. Notes: stable, will continue urrent regiment 5. C olon cancer screening Notes: guaiac negative 6. D epression screening Notes: negative screen * Procedure Codes: * Preventive Medicine: Counseling: C are goal follow-up plan: Ilya uriosteguieling for abnormal BMI provided?Yes, Ann varela Normal BMI Follow-up Rebel estevez encouragement to exercise. * * Sign off status: Completed true * Provider: Rebel English MD Date: 0 08/04/2024 Generated for Julissa crenshaw/Geovanny/Kirtitting on: 0 02/09/2025 12:39 PM EDT History and Physical Notes * HPI (History of Present Illness) Category Sub-Category Detail Notes Category Not es Symptom(s) patient is a 59 yo male here for annual visit with review of recent labs and follow up of chronic issues. Depression Screening PHQ-9 Little inte rest or pleasure in doing things: Not at all Feeling down, depressed, or hopeless: No t at all Trouble falling or staying asleep, or sl eeping too much: Not at all Feeling tired or having little energy: N ot at all Poor appetite or overeating: Not at all Feeling bad about yourself o r that you are a failure, or have let yourself or your family down: Not at all Trouble concentrating on thi ngs, such as reading the newspaper or watching television: Not at all Moving or speaking so slowly that other people could have noticed; or the opposite, being so fidgety or restless that you have been moving around a lot more than usual: Not at all Thoughts that you would be b flako off or of hurting yourself in some way: Not at all Total Score: 0 Interpretation and Intervention Depression Brittany saldivar Findings: Negative Follow-Up for Depression: : review of PH Q-9 found negative result, no follow-up needed SDOH Questions SDOH Questions In the past year have you been worried about losing housing?: No In the past year have you or any family members you live with been unable to get any of the following when it was really needed? Check all that apply:: None Communication Needs Communication Needs Does the patient have a hearing impairment: No Does the patient have a vision impairmen t?: Yes If yes, what is the vision impairment?: Glasses Does the patient have a cognition impair ment?: No Examination Category Sub-Category Detail Notes Category Not es General Examination GENERAL APPEARANCE: well dev eloped, well nourished, in no acute distress HEAD: normocephalic, atrau matic EYES: pupils equal, round, reactive to light and accommodation, sclera non-icteric EARS: normal, abnormal wit h small white papules in both ears 3 mm. appear benign THROAT: clear NECK/THYROID: neck supple, full ra nge of motion, no cervical lymphadenopathy, no bruits HEART: regular rate and rhy thm, S1, S2 normal, no murmurs LUNGS: clear to auscultatio n bilaterally ABDOMEN: soft, nontender, non distended, bowel sounds present, normal, no organomegaly , no masses palpable NEUROLOGIC: nonfocal, motor stre ngth normal upper and lower extremities, sensory exam intact SKIN: warm and dry, no remi picious lesions EXTREMITIES: no clubbing, cyanosi s, or edema MALE GENITOURINARY: circumcised, no peni le lesions or discharge, testes descended bilaterally, no testicular mass RECTAL EXAM: normal tone, no exte rnal hemorrhoids, no masses palpable, prostate normal, stool guaiac negative ORAL CAVITY: mucosa moist
--- OUTSIDE RECORDS SUMMARY | 2024-11-06 04:35 | XMS_ITS ---
Author Organization Jared English MD Address [address] [place] [phone] Care Team Providers Care Railway Switch Operator Name Role Phone TamekaMookn Primary Care Provider [phone] REASON FOR VISIT ER visit rec'd Encounters Encounter Location Date Provider Diagnosis Jared English MD [address] [facility] [address] [place] [phone] 11/06/2024 Jared English Plan Of Treatment Next Appt Details Provider Name:Jared rodríguez, 02/12/2025 10:15:00 AM, [address] [place] [address], [place] [address], [place], [place], [phone], Provider Name:Jared rodríguez, 07/31/2025 07:15:00 AM, [address] [place] [address], [place] [address], [place], [place], [phone], Provider Name:Jared rodríguez, 08/06/2025 01:00:00 PM, [address], [address], [place], [place], [phone], Progress Notes * Giovanni MANUEL SDOB:1965 (59 yo M)Acc No.[id number]:11/06/2024 Patient: Giovanni LORA :1965 A ge:59 Y S ex:Male Address:[address] [place] [address], [place] [address] * true * Date: Generated for Julissa crenshaw/Geovanny/eTransmitting on: 0 02/09/2025 12:37 PM EDT
--- OUTSIDE RECORDS SUMMARY | 2024-11-18 10:15 | XMS_ITS ---
Author Organization Jared English MD Address [address] [place], [place] [phone] Care Team Providers Care Fur Cleaner Name Role Phone Tameka Jared Primary Care Provider [phone] Allergies No Known Allergies Results Component Value Reference Range Notes Complete Blood Count Auto Di ff Reviewed date:11/18/2024 05:09:34 PM Interpretation: Performing Lab:[facility], [address] [place] [phone] Notes/Report: White Blood Count 8.9 4.8-10.8 X10*3/uL Red Blood Count 4.59 4.60-5.80 X10*6/uL Hemoglobin 13.8 14.0-18.0 g/dl Hematocrit 42.0 42.0-52.0 % Mean Corpuscular Volume 91.5 80.0-98.0 fL Mean Corpuscular Hemoglobin 30.1 27.0-33.0 pg Mean Corpuscular HGB Conc 32.9 31.0-36.0 g/dl Red Cell Distribution Width 12.3 11.0-16.0 % Platelet Count 280 160-400 X10*3/uL Mean Platelet Volume 9.7 9.4-12.4 fL Neutrophils Percent Auto 67.3 45-73 % Imm Gran Pct Auto 0.7 0.0-0.4 % Lymphocytes Percent Auto 17.2 20-40 % Monocytes Percent Auto 11.2 2-11 % Eosinophils Percent Auto 2.8 0-4 % Basophils Percent Auto 0.8 0-2 % NRBC Pct Auto 0.0 0.0-0.2 /100WBC Neutrophils Absolute Auto 6.0 2.0-8.3 x10*3/u L Imm Gran Abs Auto 0.06 0.00-0.03 X10*3/uL Lymphocytes Absolute Auto 1.5 1.2-4.9 X10*3/u L Monocytes Absolute Auto 1.0 0.1-1.2 X10*3/uL Eosinophils Absolute Auto 0.3 0.0-0.4 X10*3/u L Basophils Absolute Auto 0.1 0.0-0.2 X10*3/uL NRBC Abs Auto 0.000 0.0-0.012 X10*3/uL Erythrocyte Sedimentation Ra te Reviewed date:11/19/2024 07:30:38 PM Interpretation: Performing Lab:[address] [phone] Notes/Report: Erythrocyte Sedimentation Rate 26 0-15 MM/HR Patients with polycythemia and many hemoglobin abnormalities may have depressed sed rates whereas patients with anemia may have elevated sed rates. Rheumatoid Factor Reviewed date:11/19/2024 07:30:28 PM Interpretation: Performing Lab:[facility], [address] [place] [phone] Notes/Report: Rheumatoid Factor < 13.0 <15.0 IU/mL Tick-borne Disease Molecular Reviewed date:11/20/2024 01:05:58 PM Interpretation: Performing Lab:[address] [phone] Notes/Report: Babesia Microti DNA, RT-PCR NOT DETECTED NOT DETECTED This test was developed and its analytical performance characteristics have been determined by [employer]. It has not been cleared or approved by the FDA. This assay has been validated pursuant to the CLIA regulations and is used for clinical purposes. THIS TEST WAS PERFORMED AT: [facility] [address] [place] [phone] REY DEVLIN MD E.Chaffeensis DNA RT-PCR NOT DETECTED NOT DETECTED This test was developed and its analytical performance characteristics have been determined by [employer]. It has not been cleared or approved by the FDA. This assay has been validated pursuant to the CLIA regulations and is used for clinical purposes. THIS TEST WAS PERFORMED AT: [facility] [address] [place] [phone] REY DEVLIN MD A. Phagocytphilium DNA,RT-PCR NOT DETECTED NOT DETECTED This test was developed and its analytical performance characteristics have been determined by [employer]. It has not been cleared or approved by the FDA. This assay has been validated pursuant to the CLIA regulations and is used for clinical purposes. Lyme(Borrelia ssp)DNA RT-PCR NOT DETECTED NOT DETECTED This test was developed and its analytical performance characteristics have been determined by [employer]. It has not been cleared or approved by the FDA. This assay has been validated pursuant to the CLIA regulations and is used for clinical purposes. For additional information, please refer to https://education.Sticky/faq/snb513 (This link is being provided for informational/ educational purposes only.) THIS TEST WAS PERFORMED AT: [facility] [address] [place] [phone] REY DEVLIN MD Borrelia Miyamotoi,DNA RT-PCR NOT DETECTED NOT DETECTED This test was developed and its analytical performance characteristics have been determined by [employer]. It has not been cleared or approved by the FDA. This assay has been validated pursuant to the CLIA regulations and is used for clinical purposes. THIS TEST WAS PERFORMED AT: [facility] [address] [place] [phone] REY DEVLIN MD Tick Mol. Panel Cmmt SEE NOTE A negative result does not exclude Borrelia infection as the concentration of the organism in blood may be low or non-existent in patients with Lyme disease, and may depend on timing of specimen collection from onset of symptoms. Clinical correlation is recommended and additional studies such as serologic testing may be indicated. THIS TEST WAS PERFORMED AT: [facility] [address] [place] [phone] REY DEVLIN MD REASON FOR VISIT DISCUSS PAIN ISSUES upper chest Cardiac has been ruled out worse at night Medications Medication SIG (Take, Route, Frequency, Duration) Notes Start Date End Date Status Atorvastatin Calcium 40 MG TAKE 1 TABLET BY MOUTH EVERY DAY FOR 90 DAYS for 90 Active Omeprazole 40 MG TAKE 1 CAPSULE BY MO UTH EVERY DAY Active Vital Signs Blood pressure systolic 122 mm Hg 11/19/19 25 Blood pressure diastolic 80 mm Hg 025 Height 67.5 in 11/18/2024 Weight 201 lbs 11/18/2024 BMI 31.01 kg/m2 11/18/2024 weight is down 5 pounds [facility] 08-04-24 Encounters Encounter Location Date Provider Diagnosis Jared English MD [address] [place] [phone] 11/18/2024 Jared English Arthralgia M25.50 and Chest pain R07.9 Assessments Encounter Date Diagnosis (ICD Code) Assessment Notes Treatment Notes Treatment Clinical Notes Section Notes 11/18/2024 Arthralgia (ICD-10 - M25.50) Order given to the patient to go to [facility]. 11/18/2024 Chest pain (ICD-10 - R07.9) on review of his symptoms, it doesn't come on with exertion and is there for weeks. is uncomfortable with different positions. also having a lot of pains in various joints. he does a lot work outside and may be exposed to ticks. will do a screenng for tick diseases/ also has pains in other joints so will check for RA Plan Of Treatment Treatment Notes Assessment Notes Arthralgia Order given to the p atient to go to [facility]. Chest pain on review of his sym ptoms, it doesn't come on with exertion and is there for weeks. is uncomfortable with different positions. also having a lot of pains in various joints. he does a lot work outside and may be exposed to ticks. will do a screenng for tick diseases/ also has pains in other joints so will check for RA Next Appt Details Follow Up: 1 Week, Reason: Provider Name:Jared rodríguez, 02/12/2025 10:15:00 AM, [address], [address], [place], [place], [phone], Provider Name:Jared Mckeon ier, 07/31/2025 07:15:00 AM, [address] [facility], [address], [place], [place], [phone], Provider Name:Jared Mckeon ier, 08/06/2025 01:00:00 PM, [address] [facility], [address], [place], [place], [phone], Progress Notes * Giovanni MANUEL SDOB:1965 (59 yo M)Acc No.[id number]:11/18/2024 Progress Notes Patient: Giovanni LORA Provider: Rebel English MD :1965 A ge:59 Y S ex:Male Date:11/18/2024 Address:[address] [place] [address] Subjective: * Chief Complaints: * D ISCUSS PAIN ISSUES upper chest Cardiac has been ruled out worse at night * HPI: S ymptom(s): patient is a 59 yo male having aches and pains all over. mostly in chest. chest pain for a couple months. no shortness of breath. stays all the time. sharper at times. sleeping is difficult. has pains in knees and shoulders and hips/ hands and fingers hurt and can't lift the weight. * ROS: G eneral/Constitutional: Denies C hills. D enies F atigue. D enies F ever. D enies H eadache. E NT: Denies S ore throat. R espiratory: Denies C ough. D enies S hortness of breath at rest. D enies S hortness of breath with exertion. G astrointestinal: Denies D iarrhea. D enies N ausea. * Medical History: * Surgical History: * Hospitalization/Major Diagno stic Procedure: * Medications: T akingOmeprazole 40 MG Capsule Delayed Release TAKE 1 CAPSULE BY MOUTH EVERY DAY Atorvastatin Calcium 40 MG Tablet TAKE 1 TABLET BY MOUTH EVERY DAY FOR 90 DAYS Medication List reviewed and reconciled with the patientTaking Omeprazole 40 MG Capsule Delayed Release TAKE 1 CAPSULE BY MOUTH EVERY DAY Taking Atorvastatin Calcium 40 MG Tablet TAKE 1 TABLET BY MOUTH EVERY DAY FOR 90 DAYS Medication List reviewed and reconciled with the patient * Allergies: N .K.D.A.yes[Allergies Verified] Objective: * Vitals: H t: 67.5, Wt: 201, BMI:31.01, BP:122/80, Wt-k.17. weight is down 5 pounds since 08-04-24. * Examination: G eneral Examination: GENERAL APPEARANCE: a lert, well hydrated, in no distress.? HEAD: n ormocephalic. SKIN: g ood turgor. HEART: n o murmurs, abnormal with hr of 100. LUNGS: n o wheezes, rales, rhonchi, good air movement, clear to auscultation bilaterally. Assessment: * Assessment: 1. A rthralgia - M25.50 (Primary) 2 . C hest pain - R07.9 Plan: * Treatment: 2. C hest pain Notes: on review of his symptoms, it doesn't come on with exertion and is there for weeks. is uncomfortable with different positions. also having a lot of pains in various joints. he does a lot work outside and may be exposed to ticks. will do a screenng for tick diseases/ also has pains in other joints so will check for RA * Procedure Codes: * Follow Up: 1 Week * * Sign off status: Completed true * Provider: Rebel English MD Date: 0 11/18/2024 Generated for Julissa crenshaw/Geovanny/Kirtitting on: 0 02/09/2025 12:37 PM EDT History and Physical Notes * HPI (History of Present Illness) Category Sub-Category Detail Notes Category Not es Symptom(s) patient is a 59 yo male having aches and pains all over. mostly in chest. chest pain for a couple months. no shortness of breath. stays all the time. sharper at times. sleeping is difficult. has pains in knees and shoulders and hips/ hands and fingers hurt and can't lift the weight Examination Category Sub-Category Detail Notes Category Not es General Examination GENERAL APPEARANCE: alert, w ell hydrated, in no distress HEAD: normocephalic HEART: no murmurs, abnormal with hr of 100 LUNGS: no wheezes, rales, r honchi, good air movement, clear to auscultation bilaterally SKIN: good turgor
--- OUTSIDE RECORDS SUMMARY | 2024-12-01 07:30 | XMS_ITS ---
Author Organization Jared English MD Address [address] [place], [place] [phone] Care Team Providers Care Dietetic Technician Name Role Phone AbhinavJared grace Primary Care Provider [phone] Allergies No Known Allergies Reason For Referral Reason ARTHRITIS Diagnosis 1 Arthritis (M19.90) Referral Organization Jared English MD Referring Provider First Name Jared Referring Provider Last Name Tameka Referring Provider Speciality Internal M edicine [facility] Provider [facility] Referred Provider Specialty Rheumatology General Notes Patria Marks 0 12/01/2024 11:54:35 AM > info faxedSelina Annette 12/12/2024 08:46:55 AM >was told patient is aware of appt Referral Priority Routine Referral Appointment Date 02/04/2025 REASON FOR VISIT 1 week Medications Medication SIG (Take, Route, Frequency, Duration) Notes Start Date End Date Status Omeprazole 40 MG TAKE 1 CAPSULE BY MO UTH EVERY DAY Active Atorvastatin Calcium 40 MG TAKE 1 TABLET BY MOUTH EVERY DAY FOR 90 DAYS for 90 Active Meloxicam 15 MG 1 tablet Orally Once a day for 30 days 12/01/2024 Active Problems Problem Type SNOMED Code ICD Code Onset Dates Problem Status W/U Status Risk Notes Problem Arthritis (1047986) Arthritis (M19.90) Active confirmed Vital Signs Blood pressure systolic 138 mm Hg 12/02/19 25 Blood pressure diastolic 82 mm Hg 025 Height 67.5 in 12/01/2024 Weight 203 lbs 12/01/2024 BMI 31.32 kg/m2 12/01/2024 weight is up 2 pounds since 11-18-24 Encounters Encounter Location Date Provider Diagnosis Jared English MD [address] [place] [phone] 12/01/2024 Jaerd English Arthritis M19.90 Assessments Encounter Date Diagnosis (ICD Code) Assessment Notes Treatment Notes Treatment Clinical Notes Section Notes 12/01/2024 Arthritis (ICD-10 - M19.90) referral to rheumatology, patient verbalized understanding of medication and directions for use Plan Of Treatment Medication Medication Name Sig Start Date Stop Date Notes Meloxicam 15 MG 1 tablet Orally Once a day for 30 days Treatment Notes Assessment Notes Arthritis referral to rheumato logy, patient verbalized understanding of medication and directions for use Referrals Referral Date Details 12/01/2024 12/01/2024, [facility] Next Appt Details Follow Up: 2 Months, Reason: Provider Name:Jared rodríguez, 02/12/2025 10:15:00 AM, [address] [place] [address], [address], [phone], Provider Name:Jared rodríguez, 07/31/2025 07:15:00 AM, [address] [place] [address], [address], [phone], Provider Name:Jared rodríguez, 08/06/2025 01:00:00 PM, [address] [place] [address], [address], [phone], Progress Notes * Giovanni MANUEL SDOB:1965 (59 yo M)Acc No.[id number]:12/01/2024 Progress Notes Patient: Giovanni LORA Provider: Rebel English MD :1965 A ge:59 Y S ex:Male Date:12/01/2024 Address:[address] [place], [place] [phone] Subjective: * Chief Complaints: * 1 week * HPI: S ymptom(s): patient is a 59 yo male here for one week follow up visit/ still with pain all joints. * ROS: G eneral/Constitutional: Denies C hills. [...] Objective: * Vitals: H t: 67.5, Wt: 203, BMI:31.32, BP:138/82, Wt-k.08. weight is up 2 pounds since 11-18-24. * Examination: G eneral Examination: GENERAL APPEARANCE: a lert, well hydrated, in no distress.? HEAD: n ormocephalic. SKIN: g ood turgor. HEART: r egular rate and rhythm, no murmurs, rubs, gallops.? EXTREMITIES: w ith selling of hands. Assessment: * Assessment: 1. A rthritis - M19.90 (Primary) Plan: * Treatment: * Procedure Codes: * Follow Up: 2 Months * * Sign off status: Completed true * Provider: Rebel English MD Date: 0 12/01/2024 Generated for Julissa crenshaw/Geovanny/Kirtitting on: 0 02/09/2025 12:39 PM EDT History and Physical Notes * HPI (History of Present Illness) Category Sub-Category Detail Notes Category Not es Symptom(s) patient is a 59 yo male here for one week follow up visit/ still with pain all joints. Examination Category Sub-Category Detail Notes Category Not es General Examination GENERAL APPEARANCE: alert, w ell hydrated, in no distress HEAD: normocephalic HEART: regular rate and rhy thm, no murmurs, rubs, gallops SKIN: good turgor EXTREMITIES: with selling of hand s Consultation Request Notes Referral Date Referring Provider Referred Provider Not es 12/01/2024 Jared English [facility] ARTHRITIS
--- OUTSIDE RECORDS SUMMARY | 2025-02-09 03:00 | XMS_ITS ---
Author Organization Jared English MD Address [address] [place], [place] [phone] Care Team Providers Care Skate Boarder Name Role Phone Tameka Jraed Primary Care Provider Results Component Value Reference Range Notes Liver Panel (Not yet reviewe d by provider) Interpretation: Performing Lab:[facility], [address] [place] [phone] Notes/Report: Bilirubin Total 0.4 0.0-1.0 mg/dL Bilirubin Direct 0.1 0.0-0.5 mg/dL Aspartate Amino Transferase 30 5-37 U/L Alanine Aminotransferase 33 0-40 U/L Total Protein 7.2 6.5-8.0 g/dL Albumin Level 4.3 3.5-5.0 g/dL Alkaline Phosphatase 88 39-117 U/L Lipid Panel (Not yet review ed by provider) Interpretation: Performing Lab:[address] [phone] Notes/Report: Triglycerides 105 <150 mg/dL Desirable Triglyceride: less than 150 mg/dL Borderline High Triglyceride 150-199 mg/dL High Triglyceride: 200-499 mg/dL Very High Triglyceride: greater than or equal to 5OO mg/dL Cholesterol 156 <200 mg/dL Desirable Cholesterol: less than 200 mg/dL Borderline High Cholesterol: 200-239 mg/dL High Cholesterol: greater than 239 mg/dL LDL Cholesterol Calculated 87 <100 mg/dL Desirable LDL: less than 100 mg/dL Near Optimal/Above Optimal LDL: 110-129 mg/dL Borderline High LDL: 130-159 mg/dL High LDL: 160-189 mg/dL Very High LDL: greater than or equal to 190 mg/dL HDL Cholesterol 48 >40 mg/dL Desirable HDL: greater than 40 mg/dL Note: This HDL assay may give artificially low results in patients with liver disease. REASON FOR VISIT FASTING LIPIDS, LIVER PANEL Encounters Encounter Location Date Provider Diagnosis Jared English MD [address] [place] [phone] 02/09/2025 Jared English Hypercholesterolemia E78.00 Assessments Encounter Date Diagnosis (ICD Code) Assessment Notes Treatment Notes Treatment Clinical Notes Section Notes 02/09/2025 Hypercholesterolemia (ICD-10 - E78.00) Plan Of Treatment Pending Test Test Name Order Date Liver Panel 02/09/2025 Lipid Panel 02/09/2025 Next Appt Details Provider Name:Jared rodríguez, 02/12/2025 10:15:00 AM, [address] [place] [address], [phone], Provider Name:Jared rodríguez, 07/31/2025 07:15:00 AM, [address] [place] [address], [phone], Provider Name:Jared rodríguez, 08/06/2025 01:00:00 PM, [address] [place] [address], [phone], Progress Notes * Giovanni MANUEL SDOB:1965 (59 yo M)Acc No.[id number]:02/09/2025 Progress Note Patient: Emmie Giovanni BARAJAS Ciara Provider: Rebel English MD :1965 A ge:59 Y S ex:Male Date:02/09/2025 Address:[address] [place], [place] [phone] Subjective: * Chief Complaints: * 1 . FASTING LIPIDS, LIVER PANEL. * Medical History: Objective: * Vitals: Assessment: * Assessment: 1. H ypercholesterolemia - E78.00 Plan: * Treatment: * Procedure Codes: 3 6415 VENIPUNCT, ROUTINE* * * The named appointment provid er may or may not be the originator of this progress note, and it is not deemed complete until electronically signed by the appointment provider. Sign off status: Pending * Provider: Rebel English MD Date: 0 02/09/2025 Generated for Julissa crenshaw/Geovanny/Kirtitting on: 0 02/09/2025 12:38 PM EDT
[2025-02-09 10:59] LABS: Alanine Aminotransferase 33 U/L (0-40); Albumin Level 4.3 g/dL (3.5-5.0); Alkaline Phosphatase 88 U/L (39-117); Aspartate Amino Transferase 30 U/L (5-37); Cholesterol 156 mg/dL (<200); HDL Cholesterol 48 mg/dL (>40); Total Protein 7.2 g/dL (6.5-8.0); Triglycerides 105 mg/dL (<150)
--- OUTSIDE RECORDS SUMMARY | 2025-02-09 12:37 | XMS_ITS | Clinical Summary ---
Author Organization [facility] Address [address] [place] [address] Care Team Providers Care Product Manager Financial Services Name Role Phone Jared English MD Primary Care Provider [phone] Allergies No known active allergies Medications Medication [...] or Tdap) 07/25/2016 007 Influenza Vaccine (#1) 2025 RSV Adult > 60+ Yrs or Pregn [...] age to complete this topic Care Teams Product Manager Financial Services Relationship Specialty Start Date End Date Jared English MD [address] [place] [address] [address] [place] [phone] PCP - General Internal Medicine 11/14/21
--- OUTSIDE RECORDS SUMMARY | 2025-02-09 12:38 | XMS_ITS | Clinical Summary ---
Author Organization [facility] Address [address] [place] [address] Phone Care Team Providers Care Material Distributor Name Role Phone Jared English MD Primary Care Provider Allergies No known active allergies Medications omeprazole (PRILOSEC) 40 MG capsule Take 40 mg by mouth daily. 02/09/2022 Active oxyCODONE 5 MG immediate release tabletIndicatio ns:Tear of right gluteus medius tendon, subsequent encounter Take 1 tablet (5 mg total) by mouth every 4 (four) hours as needed. Partial fill ok 20 tablet 04/07/2022 Active Active Problems No known active problems Social History Tobacco Use Types Packs/Day Years Used Date Smoking Tobacco: Never Smokeless Tobacco: Never Alcohol Use Standard Drinks/Week Comments Yes 2 (1 standard drink = 0.6 oz pur e alcohol) Education Answer Date Recorded Are you interested in more education? Not on terence e 09/28/2022 Are you concerned about learning? Not on file 09/28/2022 No 09/28/2022 No 09/28/2022 Digital Access Answer Date Recorded No 10/31/2022 No 10/31/2022 Reliable internet access at home? Not on file 10/31/2022 Device with a working camera? Not on file Sex and Gender Information Value Date Recorded Sex Assigned at Male 03/10/2022 9:46 AM EDT Legal Sex Male 11:28 AM EDT Gender Identity Male 03/10/2022 9:46 AM EDT Sexual Orientation Straight 03/10/2022 9: 46 AM EDT Last Filed Vital Signs Vital Sign Reading Time Taken Comments Blood Pressure 167/90 04/19/2022 7:15 PM EST Pulse 78 04/19/2022 7:15 PM EST Temperature 36.3 C (97.4 F) 04/19/2022 3:31 PM EST Respiratory Rate 18 04/19/2022 7:15 PM EST Oxygen Saturation 98% 04/19/2022 7:15 PM EST Inhaled Oxygen Concentration - - Weight 90.7 kg (200 lb) 04/05/2022 11:12 AM EDT Height 172.7 cm (5' 8 ) 04/05/2022 11:12 AM EDT Body Mass Index 30.41 04/05/2022 11:12 AM EDT Plan of Treatment Health Maintenance Due Date Last Done Comments LIPID PANEL 1963 DEPRESSION SCREENING 1975 HEPATITIS C SCREENING 1981 HIV ONE-TIME SCREENING (18-65 YEARS) 1981 SCREENING FOR DIABETES 1998 COLOGUARD 2008 COLONOSCOPY 2008 FIT TEST 2008 SIGMOIDOSCOPY 2008 VIRTUAL COLONOSCOPY 2008 PNEUMOCOCCAL VACCINES (50+ years) (1 of 1 - PCV) 2013 ZOSTER VACCINES (1 of 2) 2013 COLORECTAL CANCER SCREENING 07/26/2022 FOBT 07/26/2022 07/26/2021, 06/06, 06/21/2018, Additional history exists Adult Td,Tdap Booster 12/02/2024 12/02/2014, 007 INFLUENZA VACCINE (#1) 2025 , 07/19/2021, 07/19/2021, Additional history exists COVID-19 VACCINE (2024- season) 2025 04/10/2022, 11/02/2020, 09/24/2020 RSV VACCINE (1 - 1-dose 75+ series) 2038 SMOKING STATUS SCREENING (Once After 26 Yrs) Completed 06/16/2022 HEPATITIS A VACCINES Aged Out No long er eligible based on patient's age to complete this topic HIB VACCINES Aged Out No longer eligi ble based on patient's age to complete this topic MENINGOCOCCAL VACCINES (ACWY) Aged Out No longer eligible based on patient's age to complete this topic MENINGOCOCCAL VACCINES (B) Aged Out N o longer eligible based on patient's age to complete this topic Medical Devices Implanted Type Area Manufacturing Engineering Intern Device Identifier Shelf Expiration Date Model / Serial / Lot [place] Suture 5.5mm Biosteon Intraline Needle Triple Loaded Bx/[id number] - [id number] Implanted:Qty: 2 on 04/19/2022 by Padilla Louis MD at [facility] Right: Hip TRACE ENDOSCOPY 07/04/2023 [id number] / / [id number] Description:The implant type , laterality (when applicable), size, and expiration date have been visually and verbally confirmed by the Surgeon, Circulating RN and Scrub Personnel. Insurance Hackers / Founders PPO Hackers / Founders PPO Sportlyzer PASSPORT PPO Sportlyzer PASSPORT PPO Food and BeverageGRIM PASSPORT PPO LawnStarterIM PASSPORT PPO Pharnext PILGRIM PASSPORT PPO Sportlyzer PASSPORT PPO Sportlyzer PASSPORT PPO [facility] PASSPORT PPO Care Teams Material Distributor Relationship Specialty Start Date End Date Jared English MD [address] [place] [address] [place] [address] PCP - General Internal Medicine 03/09/22 Additional Source Comments The information contained in this document represents components of the legal health record. It is not the complete legal health record.[facility]
--- OUTSIDE RECORDS SUMMARY | 2025-02-09 12:38 | XMS_ITS | Patient Health Record ---
Author Organization Jared English MD Address [address] [place], [place] [id number] Care Team Providers Care Ethnographer Name Role Phone Tameka Jared Primary Care Provider [phone] Allergies No Known Allergies Results Component Value Reference Range Notes Complete Blood Count Auto Di ff Reviewed date:07/28/2024 12:33:45 PM Interpretation: Performing Lab:[facility], [address] [place] [phone] Notes/Report: White Blood Count 8.4 4.8-10.8 X10*3/uL [...] X10*3/uL NRBC Abs Auto 0.000 0.0-0.012 X10*3/uL Comprehensive [place]. Panel Fa st Reviewed date:07/29/2024 12:33:48 PM Interpretation: Performing Lab:[facility], [address] [place] [phone] Notes/Report: Sodium 142 135-145 mmol/L Potassium 4.1 [...] 3.5-5.0 g/dL Alkaline Phosphatase 85 39-117 U/L Lipid Panel Reviewed date:07/28/2024 12:33:19 PM Interpretation: Performing Lab:[address] [phone] Notes/Report: Triglycerides 81 <150 mg/dL Desirable Triglyceride: [...] (Free>4and<10) Reviewed date:07/28/2024 12:33:26 PM Interpretation: Performing Lab:[address] [phone] Notes/Report: PSA,Total (Free>4and<10) 1.00 0.00-4.00 ng/mL A [...] Mora Alinity i Chemiluminescent Microparticle Immunoassay (CMIA) UA ClnCatch+Micro w/rflx Cul t Reviewed date:07/29/2024 12:36:35 PM Interpretation: Performing Lab:[facility], [address] [place] [phone] Notes/Report: [id number] Urine, Clean Catch Color Urine Yellow Appearance Urine Clear PH 6.0 5.0-9.0 Glucose Urine UA Negative Negative mg/dL Urine Blood Trace Negative Specific [place] - Urine 1.025 1.005-1.025 Urine Protein 30 [...] ff Reviewed date:11/18/2024 05:09:34 PM Interpretation: Performing Lab:[facility], [address] [place] [phone] Notes/Report: White Blood Count 8.9 4.8-10.8 X10*3/uL [...] te Reviewed date:11/19/2024 07:30:38 PM Interpretation: Performing Lab:[facility], [address] [place] [phone] Notes/Report: Erythrocyte Sedimentation Rate 26 0-15 MM/HR Patients with polycythemia and many hemoglobin abnormalities may have depressed sed rates whereas patients with anemia may have elevated sed rates. Rheumatoid Factor Reviewed date:11/19/2024 07:30:28 PM Interpretation: Performing Lab:[facility], [address] [place] [phone] Notes/Report: Rheumatoid Factor < 13.0 <15.0 IU/mL Tick-borne Disease Molecular Reviewed date:11/20/2024 01:05:58 PM Interpretation: Performing Lab:[facility], [address] [place] [phone] Notes/Report: Babesia Microti DNA, RT-PCR NOT DETECTED NOT DETECTED This test was developed and its analytical performance characteristics have been determined by [email or web address]. It has not been cleared or approved by the FDA. This assay has been validated pursuant to the CLIA regulations and is used for clinical purposes. THIS TEST WAS PERFORMED AT: [facility] [address] [place] [phone] REY DEVLIN MD E.Chaffeensis DNA RT-PCR NOT DETECTED NOT DETECTED This test was developed and its analytical performance characteristics have been determined by [email or web address]. It has not been cleared or approved by the FDA. This assay has been validated pursuant to the CLIA regulations and is used for clinical purposes. THIS TEST WAS PERFORMED AT: [facility] [address] [place] [phone] REY DEVLIN MD A. Phagocytphilium DNA,RT-PCR NOT DETECTED NOT DETECTED This test was developed and its analytical performance characteristics have been determined by [email or web address]. It has not been cleared or approved by the FDA. This assay has been validated pursuant to the CLIA regulations and is used for clinical purposes. Lyme(Borrelia ssp)DNA RT-PCR NOT DETECTED NOT DETECTED This test was developed and its analytical performance characteristics have been determined by [email or web address]. It has not been cleared or approved by the FDA. This assay has been validated pursuant to the CLIA regulations and is used for clinical purposes. For additional information, please refer to https://education.[employer]/faq/nbp693 (This link is being provided for informational/ educational purposes only.) THIS TEST WAS PERFORMED AT: [facility] [address] [place] [phone] REY DEVLIN MD Borrelia Miyamotoi,DNA RT-PCR NOT DETECTED NOT DETECTED This test was developed and its analytical performance characteristics have been determined by [email or web address]. It has not been cleared or approved by the FDA. This assay has been validated pursuant to the CLIA regulations and is used for clinical purposes. THIS TEST WAS PERFORMED AT: [facility] [address] [place] [phone] REY DEVLIN MD Tick Mol. Panel Cmmt [...] be indicated. THIS TEST WAS PERFORMED AT: [facility] [address] [place] [phone] REY DEVLIN MD Liver Panel (Not yet reviewe d by provider) Interpretation: Performing Lab:[facility], [address] [place] [phone] Notes/Report: Bilirubin Total 0.4 0.0-1.0 mg/dL Bilirubin Direct 0.1 0.0-0.5 mg/dL Aspartate Amino Transferase 30 5-37 U/L Alanine Aminotransferase 33 0-40 U/L Total Protein 7.2 6.5-8.0 g/dL Albumin Level 4.3 3.5-5.0 g/dL Alkaline Phosphatase 88 39-117 U/L Lipid Panel (Not yet reviewe d by provider) Interpretation: Performing Lab:[facility], [address] [place] [address] Notes/Report: Triglycerides 105 <150 mg/dL Desirable Triglyceride: [...] low results in patients with liver disease. Reason For Referral Reason ARTHRITIS Diagnosis 1 [...] Referral Priority Routine Referral Appointment Date 02/04/2025 Medications Medication SIG (Take, Route, Frequency, Duration) Notes Start Date End Date Status Omeprazole 40 MG TAKE 1 CAPSULE BY [facility] EVERY DAY Active Atorvastatin Calcium 40 MG TAKE 1 TABLET BY MOUTH EVERY DAY FOR 90 DAYS for 90 Active Meloxicam 15 MG 1 tablet Orally Once a day for 30 days 12/01/2024 Active Immunizations Vaccine Route Administration Date Status [...] Administered Fluarix Quadrivalent - 150 Unknown 04/12/2024 Ning mckeon [facility] PPSV23 (Pnemovax) Unknown 07/04/2019 Refused Social [...] Problem Status W/U Status Risk Notes Problem 015010248 Reflux esophagit is (K21.00) Active confirmed Problem 526128562 Atherosclerosis of abdominal aorta (I70.0) Active confirmed Problem Arthritis (0847117) Arthritis (M19.90) Active c onfirmed Problem Psoriasis (6720031) Psoriasis (L40.9) Active co nfirmed Problem Hypercholesterolemia (75608131) Hypercholesterolemia (E78.00) Active confirmed Problem 754602122 Mild intermitten t asthmatic bronchitis with acute exacerbation (J45.21) Active confirmed Vital Signs Blood pressure diastolic 82 mm Hg 12/01/2024 paras ght is up 2 pounds since 11-18-24 Height 67.5 in 12/01/2024 weight is up 2 pounds since 11-18-24 Blood pressure systolic 138 mm Hg 12/01/2024 weig ht is up 2 pounds since 11-18-24 Weight 203 lbs 12/01/2024 weight is up 2 pounds since 11-18-24 BMI 31.32 kg/m2 12/01/2024 weight is up 2 pounds since 11-18-24 Encounters Encounter Location Date Provider Diagnosis Jared English MD [address] [place] [address] [address] [place] [id number] 07/28/2024 Jared English Blood tests for rout ine general physical examination Z00.00 and Hypercholesterolemia E78.00 Jared English MD [address] [place] [id number] 02/09/2025 Jared English Hypercholesterolemia E78.00 Jared English MD [address] [place] [address] [address] [place] [id number] 08/04/2024 Jared English Hypercholesterolemia E78.00 ; Annual physical exam Z00.00 ; Psoriasis L40.9 ; Reflux esophagitis K21.00 ; Colon cancer screening Z12.11 and Depression screening Z13.31 Jared English MD [address] [place] [id number] 11/18/2024 Jared English Arthralgia M25.50 an d Chest pain R07.9 Jared English MD [address] [id number] 12/01/2024 Jared English Arthritis M19.90 Jared English MD [address] [place] [id number] 11/06/2024 Jared English Assessments Encounter Date Diagnosis (ICD Code) Assessment Notes Treatment Notes Treatment Clinical Notes Section Notes 07/28/2024 Blood tests for rout ine general physical examination (ICD-10 - Z00.00) 02/09/2025 Hypercholesterolemia (ICD-10 - E78.00) 08/04/2024 Hypercholesterolemia (ICD-10 - E78.00) doing well on meds, will continue current regiment anf will continue to monitor 08/04/2024 Annual physical exam (ICD-10 - Z00.00) labs reviewed and discussed with patient 11/18/2024 Arthralgia (ICD-10 - M25.50) Order given to the patient to go to [facility] lab. 11/18/2024 Chest pain (ICD-10 - R07.9) [...] other joints so will check for RA 12/01/2024 Arthritis (ICD-10 - M19.90) referral to rheumatology, patient verbalized understanding of medication and directions for use 07/28/2024 Hypercholesterolemia (ICD-10 - E78.00) 08/04/2024 Psoriasis (ICD-10 - L40.9) well controlled, will cntinue current regiment 08/04/2024 Reflux esophagitis (ICD-10 - K21.00) stable, will continue urrent regiment 08/04/2024 Colon cancer screeni ng (ICD-10 - Z12.11) guaiac negative 08/04/2024 Depression screening (ICD-10 - Z13.31) negative screen Plan Of Treatment Pending Test Test Name Order Date Electrocardiogram (EKG) 06/21/2018 Liver Panel 02/09/2025 Lipid Panel 02/09/2025 Next Appt Details Provider Name:Jared rodríguez, 02/12/2025 10:15:00 AM, [address] [place] [address], [address], [phone], Provider Name:Jared rodríguez, 07/31/2025 07:15:00 AM, [address] [place] [address], [place] [address], [place], [place], [phone], Provider Name:Jared rodríguez, 08/06/2025 01:00:00 PM, [address] [place] [address], [address], [phone], Insurance Providers Payer Name Payer Address Payer Phone Subscriber Number Group Number Insured Name Patient Relationship to Insured Coverage Start Date Coverage End Date [facility] [id number] [place], [place] [id number] Giovanni Manuel Self - patient is the insured Medical (General) History Medical History History ICD Code HDL 65, TRIGL 203, LDL 185 NON fasting Colonoscopy 07/21/2016 w/Dr. Carmelita pizarro 10 years hematuria evalu scope and mri mri is on 07/20/23 urology note tremfya is for psoriasis
--- OUTSIDE RECORDS SUMMARY | 2025-02-09 12:38 | XMS_ITS ---
Author Name [facility] Organization Unknown History of Medication Use Medication Directions Dispensed Refills Start Date End Date Stat us lidocaine (PF) 100 mg/5 mL (2 %) injection syringe Take 3 mL by injection route. 12/09/2024 active triamcinolone acetonide 40 mg/mL suspension for injection Take 60 mg by injection route. 12/09/2024 active triamcinolone acetonide 40 mg/mL suspension for injection active lidocaine (PF) 100 mg/5 mL (2 %) injection syringe active atorvastatin 40 mg tablet TAKE 1 TABLET BY MOUTH EVERY DAY active meloxicam 15 mg tablet TAKE 1 TABLET BY MOUTH EVERY DAY FOR 30 DAYS active omeprazole active omeprazole 40 mg capsule,delayed release TAKE 1 CAPSULE BY MOUTH EVERY DAY active tizanidine 4 mg tablet TAKE 1 TABLET BY MOUTH EVERY 8 HOURS DIRECTED FOR 10 DAYS active Problems Problem Status Onset Date Problem Type Date of Resoluti on Source Pain of right shoulder region active 2024-12-09 ProblemAct [facility] Rotator cuff arthropathy of right shoulder active 2024-12-08 ProblemAct [facility] Encounters Encounter Type Encounter Reason Primary Diagnosis Location Date Ambulatory [facility] 12/09/2024 Ambulatory [facility] 12/08/2024 Ambulatory [facility] 12/08/2024 Ambulatory [facility] 12/08/2024 Ambulatory [facility] 12/08/2024 Ambulatory [facility] 12/08/2024
--- OUTSIDE RECORDS SUMMARY | 2025-02-09 12:38 | XMS_ITS | Patient Health Record ---
Author Organization [facility] Address [address] [place] [address] Care Team Providers Care Orthophoto Tech/[place]man Name Role Phone Jared English MD Primary Care Provider Eliseo Whitaker Jr Unavailable Reason For Referral No Information Medications Medication SIG (Take, Route, Frequency, Duration) Notes Start Date End Date Status Omeprazole Active Ibuprofen Active Multivitamin Active Immunizations Vaccine Route Administration Date Status Comme nts Influenza Unknown 2019 Administered Social History Tobacco Use: Social History Observation [...] Never (0 point) Points 3 Interpretation Negative Problems Problem Type SNOMED Code ICD Code Onset Dates Problem Status W/U Status Risk Notes Problem Gastroesophageal reflux disease (544367007) GERD without esophagitis (K21.9) Active confirmed Plan Of Treatment Future Test Test Name Order Date UPPER GI ENDOSCOPY 03/17/2020 Insurance Providers Payer Name Payer Address Payer Phone Subscriber Number Group Number Insured Name Patient Relationship to Insured Coverage Start Date Coverage End Date [facility] [address] [place] [id number] MASON VELA Self - patient is the insured Medical (General) History Medical History History ICD Code acid reflux Surgical History Surgery Date(Month/Year) rotator cuff tear repair - bilateral
--- OUTSIDE RECORDS SUMMARY | 2025-02-09 12:38 | XMS_ITS | Encounter Summary ---
Author Organization [facility] Address [address] [place] [phone] Phone Care Team Providers Care Specimen Technician Name Role Phone Jared English MD Primary Care Provider Encounter Details Date Type Department Care Team (Late st Contact Info) Description 04/19/2022 Procedure Pass [facility] PERIOPERATIVE DEPT [address] [place] [address] Social History Tobacco Use Types Packs/Day Years Used Date Smoking Tobacco: Never Smokeless Tobacco: Never Alcohol Use Standard Drinks/Week Comments Yes 2 (1 standard drink = 0.6 oz pur e alcohol) Sex and Gender Information Value Date Recorded Sex Assigned at Male 03/10/2022 9:46 AM EDT Legal Sex Male 11:28 AM EDT Gender Identity Male 03/10/2022 9:46 AM EDT Sexual Orientation Straight 03/10/2022 9: 46 AM EDT documented as of this encounter Plan of Treatment Not on file documented as of this encounter Visit Diagnoses Not on filedocumented in this encounter Care Teams Specimen Technician Relationship Specialty Start Date End Date Jared English MD [address] [place] [address] [place] [address] PCP - General Internal Medicine 03/09/22 documented as of this encounter Additional Source Comments The information contained in this document represents components of the legal health record. It is not the complete legal health record.[facility]
== END 2025-02-09 07:01 | disposition home or self-care (01) ==
LOC: HO.LNP 07:00
PROVIDERS: Visit Provider Internal Medicine
DX: E78.00 Pure hypercholesterolemia, unspecified (principal)
CPT/HCPCS: 80061; 80076

== ENCOUNTER 2025-05-18 09:15 | Outpatient (REF) | payer OTHER, SELFPAY | END 2025-05-18 09:16 | disposition home or self-care (01) | LOC: HO.LNP 09:15 | PROVIDERS: Visit Provider Internal Medicine | DX: M25.50 Pain in unspecified joint (principal); Z13.29 Encounter for screening for other suspected endocrine disorder | CPT/HCPCS: 84402; 84403; 84443 ==